=== PATIENT | male | born 1945 | race Caucasian/White ===

== ENCOUNTER 2021-08-25 14:49 | Inpatient (IN) | payer OTHER ==
[~2021-08-25] VITALS: Ht 170.2 cm; Wt 75.2 kg
[2021-08-25] MEDS ORDERED: fentaNYL 100 MCG/2 ML INJECTION (J3010) IV ONE (15:50)
[2021-08-25 16:31] LABS: BASO % 0.4 % (0.0-1.0); EOS # 0.4 10^3/uL (0.0-0.5); EOS % 5.4 % (0.0-3.0); HEMATOCRIT 23.2 % (42.0-52.0); HEMOGLOBIN 7.9 g/dl (13.5-17.5); LYMPH # 1.8 10^3/uL (1.5-5.0); LYMPH % 26.6 % (24.0-44.0); MEAN CORPUSCULAR HEMOGLOBIN 35.7 pg (27.0-33.0); MEAN CORPUSCULAR HGB CONC 34.1 g/dl (32.0-36.5); MONO # 0.8 10^3/uL (0.0-0.8); MONO % 11.8 % (2.0-8.0); NEUTROPHILS # 3.8 10^3/uL (1.5-8.5); NEUTROPHILS % 55.4 % (36.0-66.0); PLATELET COUNT, AUTOMATED 162 10^3/uL (150-450); RED BLOOD COUNT 2.21 10^6/uL (4.30-6.10); WHITE BLOOD COUNT 6.9 10^3/uL (4.0-10.0)
[2021-08-25] MEDS ORDERED: PEG-SOL4 PO (16:33)
[2021-08-25] MEDS ORDERED: DIVA500T9 PO (16:33)
[2021-08-25] MEDS ORDERED: ROSU10TA6 PO (16:33)
[2021-08-25] MEDS ORDERED: METO1TAB32 PO (16:33)
[2021-08-25] MEDS ORDERED: ASPI81CH33 PO (16:33)
[2021-08-25] MEDS ORDERED: HYDR-3911 PO (16:33)
[2021-08-25] MEDS ORDERED: LEVE750XR PO (16:33)
[2021-08-25] MEDS ORDERED: NOXI1TAB PO (16:33)
[2021-08-25] MEDS ORDERED: FOSI10TA4 PO (16:33)
[2021-08-25] MEDS ORDERED: ISOS20TAB PO (16:33)
[2021-08-25] MEDS ORDERED: SEVE800T3 PO (16:33)
[2021-08-25] MEDS ORDERED: LOPE1CAP5 PO (16:33)
[2021-08-25] MEDS ORDERED: NITR0.4S14 SL (16:33)
[2021-08-25] MEDS ORDERED: ICY1PAD EX (16:33)
[2021-08-25] MEDS ORDERED: ALLO100T PO (16:33)
[2021-08-25] MEDS ORDERED: TORS20TA2 PO (16:33)
[2021-08-25] MEDS ORDERED: CLOP75TA2 PO (16:33)
[2021-08-25] MEDS ORDERED: TERA10CA3 PO (16:33)
[2021-08-25] MEDS ORDERED: LEVO75TA4 PO (16:33)
[2021-08-25] MEDS ORDERED: CLAR10CA3 PO (16:33)
[2021-08-25] MEDS ORDERED: CALC260T PO (16:33)
--- NOTE | 2021-08-25 16:37 | REP ---
INDICATION: pain. COMPARISON: None. TECHNIQUE: Three AP and lateral views. FINDINGS: There is no compression fracture or malalignment. There is normal lumbar lordosis. There is diffuse bridging osteophytosis anteriorly. There is mild disc space narrowing and subchondral sclerosis at all levels with extensive disc calcifications at all levels. There is sclerosis and spurring at the posterior facet joints. The posterior elements are intact. IMPRESSION: Diffuse degenerative changes without fracture or dislocation. <Electronically signed by Andrew Meeks > 08/25/21 [id number]
--- NOTE | 2021-08-25 16:39 | REP ---
INDICATION: pain COMPARISON: None. TECHNIQUE: Four views bilateral knees. FINDINGS: There is no evidence of acute fracture, dislocation, or intrinsic bone disease.There is superior patellar spurring on the right. Diffuse vascular calcifications are seen in the posterior soft tissues bilaterally. No large joint effusion is seen bilaterally. IMPRESSION: No fracture or dislocation. <Electronically signed by Andrew Meeks > 08/25/21 [id number]
--- NOTE | 2021-08-25 16:42 | REP ---
INDICATION: pain. COMPARISON: None. TECHNIQUE: AP pelvis, AP and frogleg views bilateral hips. FINDINGS: There is no evidence of acute fracture or dislocation. Moderate degenerative changes are seen at each hip joint with joint space narrowing, subchondral sclerosis and spurring. Phleboliths and vascular calcifications are seen in the pelvis, as well as what appears to be a peritoneal dialysis catheter. IMPRESSION: Degenerative changes. No fracture or dislocation. <Electronically signed by Andrew Meeks > 08/25/21 [id number]
[2021-08-25 16:43] LABS: INR 1.04
[2021-08-25 17:04] LABS: ERYTHROCYTE SEDIMENTATION RATE 56 mm/hr (0-20)
--- NOTE | 2021-08-25 17:09 | ECGEPIP ---
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
[2021-08-25] MEDS ORDERED: traMADol 50 MG TAB PO ONE (17:50)
[2021-08-25 17:54] LABS: CHLORIDE LEVEL 95 MEQ/L (98-107); POTASSIUM SERUM 4.2 MEQ/L (3.5-5.1); SODIUM LEVEL 133 MEQ/L (136-145)
[2021-08-25 18:25] LABS: ALBUMIN 2.9 GM/DL (3.2-5.2); ALT/SGPT 16 U/L (12-78); BILIRUBIN,DIRECT 0.1 MG/DL (0.0-0.2); BILIRUBIN,TOTAL 0.3 MG/DL (0.2-1.0); BLOOD UREA NITROGEN 136 MG/DL (7-18); CALCIUM LEVEL 9.2 MG/DL (8.8-10.2); CARBON DIOXIDE LEVEL 28 MEQ/L (21-32); CK-MB VALUE MASS 3.5 NG/ML (<3.6); CPK CREATINE PHOSPHOKINASE 148 U/L (39-308); FREE T4 1.04 NG/DL (0.76-1.46); GLOMERULAR FILTRATION RATE 4.2 (>42); GLUCOSE, FASTING 84 MG/DL (70-100); LIPASE 416 U/L (73-393); MB/CK RELATIVE INDEX 2.36 (< OR =4); NT-PRO BNP 23504 PG/ML (<450); TROPONIN I < 0.02 NG/ML (< 0.10)
[2021-08-25] MEDS ORDERED: BACLOFEN 10 MG TAB PO ONE (18:30)
[2021-08-25 19:03] LABS: MAGNESIUM LEVEL 2.7 MG/DL (1.8-2.4)
--- NOTE | 2021-08-25 19:36 | REP ---
INDICATION: sob. COMPARISON: None. TECHNIQUE: Upright PA and lateral images of the chest were obtained. FINDINGS: The lungs are clear. There is calcific vascular disease of the thoracic aorta. The heart borders and pulmonary vascular pattern are unremarkable. There are cholecystectomy clips in the right upper quadrant. The upper abdominal bowel gas pattern is unremarkable. There are no bony abnormalities of the chest. IMPRESSION: No evidence of acute cardiopulmonary pathology. <Electronically signed by Mayur Martin > 08/25/211931
[2021-08-25] MEDS ORDERED: ISOVUE-370 76% 100ML VIAL As Ordered ONE (20:17)
[2021-08-25] MEDS: FOSINOPRIL 10MG TABLET PO SCH (21:00)
--- NOTE | 2021-08-25 21:05 | REPVR ---
PROCEDURE INFORMATION: Exam: CTA Abdomen and Pelvis With Contrast Exam date and time: 08/25/2021 8:26 PM Age: 75 years old Clinical indication: Abdominal pain; Acute; Additional info: Abd/back pain ? aaa TECHNIQUE: Imaging protocol: Computed tomographic angiography of the abdomen and pelvis with contrast material. 3D rendering (Not supervised by radiologist): MIP and/or 3D reconstructed images were created by the technologist. Radiation optimization: All CT scans at this facility use at least one of these dose optimization techniques: automated exposure control; mA and/or kV adjustment per patient size (includes targeted exams where dose is matched to clinical indication); or iterative reconstruction. Contrast material: ISO 370; Contrast volume: 100 ml; Contrast route: INTRAVENOUS (IV); COMPARISON: CR Chest, 2 view PA, Lat 08/25/2021 6:40 PM FINDINGS: Tubes, catheters and devices: Peritoneal catheter tip coiled in the pelvis. Lungs: Calcified granuloma right lower lobe. Aorta: Moderate atherosclerotic changes in the abdominal aorta. No aneurysm or dissection. Celiac trunk and mesenteric arteries: Mild atherosclerotic stenosis at the origin of the celiac artery. Moderate atherosclerotic stenosis at the origin of the SMA. Renal arteries: Moderate atherosclerotic narrowing at the origin of both renal arteries. Right iliac arteries: Moderate atherosclerotic changes in the right iliac arteries with a high-grade stenosis demonstrated at the origin of the right internal iliac artery. Right femoral/popliteal arteries: Moderate atherosclerotic changes with mild aneurysmal dilatation right common femoral artery to 1.6 cm. Left iliac arteries: Moderate atherosclerotic changes in the left iliac arteries with a moderate stenosis at the origin of the left internal iliac artery. Left femoral/popliteal arteries: High-grade stenosis in the left common femoral artery. Liver: No mass. Gallbladder and bile ducts: There has been a cholecystectomy. Pancreas: Unremarkable. No mass. No ductal dilation. Spleen: The spleen demonstrates punctate calcifications, consistent with remote granulomatous organism exposure. Adrenal glands: Unremarkable. No mass. Kidneys and ureters: Unremarkable. No solid mass. No hydronephrosis. Stomach and bowel: Moderate diverticulosis is present in the distal colon. No diverticulitis. Appendix: No evidence of appendicitis. Intraperitoneal space: Unremarkable. No free air. No significant fluid collection. Lymph nodes: Unremarkable. No enlarged lymph nodes. Urinary bladder: Unremarkable. No mass. Reproductive: The prostate gland demonstrates mild hyperplasia. Bones/joints: The spine demonstrates moderate degenerative changes. Moderate central spinal stenosis L1-L2, L3-L4 and L4-L5. Soft tissues: Unremarkable. IMPRESSION: 1. There has been a cholecystectomy. 2. Moderate diverticulosis is present in the distal colon. No diverticulitis. 3. Mild prostatic hyperplasia. 4. Moderate atherosclerotic changes in the abdominal aorta without evidence of aneurysm or dissection. Moderate atherosclerotic narrowing at the origin of the celiac, SMA and renal arteries. 5. High-grade stenosis right internal iliac artery and moderate stenosis throughout the remaining iliac arteries bilaterally. 6. High-grade narrowing at the left common femoral artery. Electronically signed by: Chris Hernandez On 08/25/2021 21:04:48 PM
--- NOTE | 2021-08-25 22:08 | HPEPDOC ---
[facility] Medical History & Physical Date of Admission Aug 25, 2021 Date of Service: Aug 25, 2021 Attending Physician: DAY ARCINIEGA MD History and Physical CHIEF COMPLAINT: [75 y/o male c/o worsening back pain x2 months] HISTORY OF PRESENT ILLNESS: [This is a 75 y/o male with a pmh of cad s/p stenting, hld, htn, esrd on peritoneal dialysis, bph, diet controlled dm, hypothyroidism, peripheral vascular disease who presents to our ED on 08/25 with a cc of low back pain that radiates into the thighs that has been steadily worsening over the past two months and is now constant in nature. Patient states that he feels as though the pain is more severe in the evenings when he lays down. Patient states that the pain is to the point where he does not feel like eating much and no longer feels like fishing - something he used to do daily. Patient tells me that he will occasionally develop some numbness of the b/l feet, however blames this on diabetic neuropathy and states that this is chronic. Patient denies any recent injury to the back. Patient admits to some mild abd discomfort, but blames this on his recent poor appetite. Patient, at the time of my exam, also denying recent fevers, chills, chest pain, sob, n/v/d/c, pedal edema, syncope.] PAST MEDICAL HISTORY: 1. [See HPI PAST SURGICAL HISTORY: 1. [Cardiac stenting]. 2. [Cholecystectomy]. 3. [Peritoneal dialysis catheter]. SOCIAL HISTORY: Tobacco use:[Denies] ETOH: [Denies] Illicit drug use: [Denies] Other relevant social factors: [Recently moved to [place] from [facility]] FAMILY HISTORY: Reviewed - none pertinent ALLERGIES: Please see below. REVIEW OF SYSTEMS: CONSTITUTIONAL: [Denies fevers, chills]. HEENT: [Denies uri sx]. CARDIOVASCULAR: [Denies chest pain, palpitations]. RESPIRATORY: [Denies sob, cough]. GASTROINTESTINAL: [Admits to abd discomfort. Denies n/v/d/c]. GENITOURINARY: [Denies dysuria]. SKIN: [Denies rash]. MUSCULOSKELETAL: [See HPI]. NEUROLOGICAL: [Denies syncope]. ENDOCRINE: [Hx of DM]. HEMATOLOGIC/LYMPHATIC: [Denies hx of vte]. HOME MEDICATIONS: Please see below. PHYSICAL EXAMINATION: VITAL SIGNS: Please see below. GENERAL APPEARANCE: [This is a 75 y/o male who is alert and oriented to questioning. He does not appear to be in any acute distress]. HEENT: [No mass or lesion. EOMI. No scleral icterus. Nares patent. Oral mucosa moist]. CARDIOVASCULAR: [Regular rate, rhythm. No murmurs, rubs, gallops]. LUNGS: [Good air flow b/l. No wheezing, rales, rhonchi]. ABDOMEN: [Peritoneal dialysis catheter in place with clean, dry bandage overlying. The area is mildly tender to palpation, however no fluctuance or erythema is appreciated. Soft abdomen]. MUSCULOSKELETAL: [No joint deformity noted]. EXTREMITIES: [Darkening of lower extremities consistent with chronic venous insufficiency. Peripheral pulses are unable to be appreciated by myself however capillary refill is intact. Mild pedal edema]. NEUROLOGICAL: [Speech clear. A+Ox3. No focal deficits]. PSYCHIATRIC: [Mood and affect appropriate]. LABORATORY DATA: See below. IMAGING: [Hip XR: FINDINGS: There is no evidence of acute fracture or dislocation. Moderate degenerative changes are seen at each hip joint with joint space narrowing, subchondral sclerosis and spurring. Phleboliths and vascular calcifications are seen in the pelvis, as well as what appears to be a peritoneal dialysis catheter. IMPRESSION: Degenerative changes. No fracture or dislocation. Knee XR: FINDINGS: There is no evidence of acute fracture, dislocation, or intrinsic bone disease.There is superior patellar spurring on the right. Diffuse vascular calcifications are seen in the posterior soft tissues bilaterally. No large joint effusion is seen bilaterally. IMPRESSION: No fracture or dislocation. Lumbar spine XR: FINDINGS: There is no compression fracture or malalignment. There is normal lumbar l ordosis. There is diffuse bridging osteophytosis anteriorly. There is mild disc space narrowing and subchondral sclerosis at all levels with extensive disc calcifications at all levels. There is sclerosis and spurring at the posterior facet joints. The posterior elements are intact. IMPRESSION: Diffuse degenerative changes without fracture or dislocation. CXR: FINDINGS: The lungs are clear. There is calcific vascular disease of the thoracic aorta. The heart borders and pulmonary vascular pattern are unremarkable. There are cholecystectomy clips in the right upper quadrant. The upper abdominal bowel gas pattern is unremarkable. There are no bony abnormalities of the chest. IMPRESSION: No evidence of acute cardiopulmonary pathology. CTA Abd/pelvis: FINDINGS: Tubes, catheters and devices: Peritoneal catheter tip coiled in the pelvis. Lungs: Calcified granuloma right lower lobe. Aorta: Moderate atherosclerotic changes in the abdominal aorta. No aneurysm or dissection. Celiac trunk and mesenteric arteries: Mild atherosclerotic stenosis at the origin of the celiac artery. Moderate atherosclerotic stenosis at the origin of the SMA. Renal arteries: Moderate atherosclerotic narrowing at the origin of both renal arteries. Right iliac arteries: Moderate atherosclerotic changes in the right iliac arteries with a high-grade stenosis demonstrated at the origin of the right internal iliac artery. Right femoral/popliteal arteries: Moderate atherosclerotic changes with mild aneurysmal dilatation right common femoral artery to 1.6 cm. Left iliac arteries: Moderate atherosclerotic changes in the left iliac arteries with a moderate stenosis at the origin of the left internal iliac artery. Left femoral/popliteal arteries: High-grade stenosis in the left common femoral artery. Liver: No mass. Gallbladder and bile ducts: There has been a cholecystectomy. Pancreas: Unremarkable. No mass. No ductal dilation. Spleen: The spleen demonstrates punctate calcifications, consistent with remote granulomatous organism exposure. Adrenal glands: Unremarkable. No mass. Kidneys and ureters: Unremarkable. No solid mass. No hydronephrosis. Stomach and bowel: Moderate diverticulosis is present in the distal colon. No diverticulitis. Appendix: No evidence of appendicitis. Intraperitoneal space: Unremarkable. No free air. No significant fluid collection. Lymph nodes: Unremarkable. No enlarged lymph nodes. Urinary bladder: Unremarkable. No mass. Reproductive: The prostate gland demonstrates mild hyperplasia. Bones/joints: The spine demonstrates moderate degenerative changes. Moderate central spinal stenosis L1-L2, L3-L4 and L4-L5. Soft tissues: Unremarkable. IMPRESSION: 1. There has been a cholecystectomy. 2. Moderate diverticulosis is present in the distal colon. No diverticulitis. 3. Mild prostatic hyperplasia. 4. Moderate atherosclerotic changes in the abdominal aorta without evidence of aneurysm or dissection. Moderate atherosclerotic narrowing at the origin of the celiac, SMA and renal arteries. 5. High-grade stenosis right internal iliac artery and moderate stenosis throughout the remaining iliac arteries bilaterally. 6. High-grade narrowing at the left common femoral artery. ] MICROBIOLOGY: Please see below. ASSESSMENT: [This is a 75 y/o male with a pmh of cad s/p stenting, hld, htn, esrd on peritoneal dialysis, bph, diet controlled dm, hypothyroidism, peripheral vascular disease who presents to our ED on 08/25 with a cc of low back pain that radiates into the thighs that has been steadily worsening over the past two months and is now constant in nature.]. . PLAN: 1. [Back/leg pain - Most likely secondary to combination of osteoarthritis and claudication from severe peripheral vascular disease - Pain control will be difficult in this patient d/t allergy to oxycodone, morphine and comorbid ESRD - Recommend patient f/u with vascular surgery promptly upon dc - Tylenol, tramadol for pain control - monitor sx 2. Symptomatic anemia - Patient c/o fatigue, weakness - current hb is 7.9, goal is >8 d/t comorbid esrd, cad - will transfuse 1 unit prbc - risks/benefits of transfusion discussed with patient who verbalized understanding - consent form was signed - iron studies, b12, folate ordered - stool occult ordered - ua for microhematuria ordered 3. ESRD - continue peritoneal dialysis per nephrology - Dr. Will Joshua, nephrology, has been consulted for assistance in this case. Assistance and recommendations greatly appreciated - continue sevelamer 4. HTN - continue torsemide, metoprolol, hydralazine, fosinopril 5. CAD - continue isosorbide, nitroglycerin, asa, plavix 6. BPH - continue terazosin 7. Epilepsy - continue keppra, depakote 8. Hypothyroidism - continue synthroid 9. HLD - continue rosuvastatin DVT prophylaxis - heparin ordered]. Vital Signs Vital Signs Date Time Temp Pulse Resp B/P (MAP) Pulse Ox O2 Delivery O2 Flow Rate FiO2 08/25/21 21:31 98.0 65 170/72 (104) 98 Room Air 08/25/21 18:14 20 Laboratory Data Labs 24H Laboratory Tests 2 08/25/21 15:59: Immature Granulocyte % (Auto) 0.4, Neutrophils (%) (Auto) 55.4, Lymphocytes (%) (Auto) 26.6, Monocytes (%) (Auto) 11.8H, Eosinophils (%) (Auto) 5.4H, Basophils (%) (Auto) 0.4, Neutrophils # (Auto) 3.8, Lymphocytes # (Auto) 1.8, Monocytes # (Auto) 0.8, Eosinophils # (Auto) 0.4, Basophils # (Auto) 0.0, Nucleated Red Blood Cells % (auto) 0.0, Erythrocyte Sedimentation Rate 56H, Prothrombin Time 14.0, Prothromb Time International Ratio 1.04, Activated Partial Thromboplast Time 31.0, Anion Gap 10, Glomerular Filtration Rate 4.2L, Calcium Level 9.2, Magnesium Level 2.7H, Total Bilirubin 0.3, Direct Bilirubin 0.1, Aspartate Amino Transf (AST/SGOT) 19, Alanine Aminotransferase (ALT/SGPT) 16, Alkaline Phosphatase 111, Total Creatine Kinase 148, Creatine Kinase MB 3.5, Creatine Kinase MB Relative Index 2.36, Troponin I < 0.02, C-Reactive Protein, Quantitative 0.30, TW-Qaf-A-Type Natriuretic Peptide 44990T, Total Protein 6.0L, Albumin 2.9L, Albumin/Globulin Ratio 0.9, Lipase 416H, Thyroid Stimulating Hormone (TSH) 4.470H, Free Thyroxine 1.04 CBC/BMP Laboratory Tests 08/25/21 15:59 Home Medications Scheduled Allopurinol (Allopurinol) 100 Mg Tablet, 100 MG PO DAILY Aspirin (Aspirin EC) 81 Mg Tablet.dr, 81 MG PO DAILY Calcium Carbonate (Calcium Carbonate) 500 Mg Tablet, 500 MG PO BID Cholecalciferol (Vitamin D3) (Vitamin D3) 1,000 Unit Tablet, 1,000 UNITS PO DAILY Clopidogrel Bisulfate (Clopidogrel) 75 Mg Tablet, 75 MG PO DAILY Divalproex Sodium (Divalproex Sodium ER) 500 Mg Tab.er.24h, 500 MG PO BID Fosinopril Sodium (Fosinopril Sodium) 10 Mg Tablet, 5 MG PO QHS Hydralazine HCl (Hydralazine HCl) 50 Mg Tablet, 50 MG PO TID Isosorbide Dinitrate (Isosorbide Dinitrate) 20 Mg Tablet, 20 MG PO TID Levetiracetam (Levetiracetam ER) 750 Mg Tab.er.24h, 750 MG PO DAILY Levothyroxine Sodium (Levothyroxine Sodium) 75 Mcg Tablet, 75 MCG PO DAILY Loratadine (Loratadine) 10 Mg Tablet, 10 MG PO DAILY Metoprolol Succinate (Metoprolol Succinate) 25 Mg Tab.er.24h, 25 MG PO DAILY Stanton-3 Fatty Acids/Fish Oil (Fish Oil 1,000 mg Capsule) 1 Each Capsule, 1,000 MG PO DAILY Rosuvastatin Calcium (Rosuvastatin Calcium) 10 Mg Tablet, 5 MG PO QHS Sevelamer Carbonate (Sevelamer Carbonate) 800 Mg Tablet, 1,600 MG PO WM Terazosin Hcl (Terazosin HCl) 10 Mg Capsule, 10 MG PO DAILY Torsemide (Torsemide) 20 Mg Tablet, 20 MG PO BID Vit A/Vit C/Vit E/Zinc/Copper (Preservision Areds Tablet) 1 Each Tablet, 1 TAB PO BID Scheduled PRN Epinephrine (Epipen 2-Juniad) 0.3 Mg/0.3 Ml Auto.injct, 0.3 MG IM ASDIRECTED PRN for ANAPHYLAXIS Nitroglycerin (Nitrostat) 0.4 Mg Tab.subl, 0.4 MG SL NITRO PRN for CHEST PAIN Propylene Glycol/Peg 400/Pf (Systane 0.3-0.4% Eye Drop) 1 Each Droperette, 1 DROP OU QID PRN for DRY EYES Allergies Coded Allergies: oxycodone (Verified Allergy, Unknown, 08/25/21) A-FIB/CHADSVASC A-FIB History Current/History of A-Fib/PAF?: No Current PO Anticoag Therapy: No DELIA HOUGH Aug 25, 2021 22:07
--- OUTSIDE RECORDS SUMMARY | 2021-08-25 22:11 | CCD ---
Author Author [facility] Organization [facility] Address Unknown Phone Unavailable Support Name Relationship Address Phone GUERLINE MERA Next Of Kin [id number] [place], [place] [id number] Re-disclosure Warning The records that you are about to access may contain information from federally-assisted alcohol or drug abuse programs. If such information is present, then the following federally mandated warning applies: This information has been disclosed to you from records protected by federal confidentiality rules (42 CFR part 2). The federal rules prohibit you from making any further disclosure of this information unless further disclosure is expressly permitted by the written consent of the person to whom it pertains or as otherwise permitted by 42 CFR part 2. A general authorization for the release of medical or other information is NOT sufficient for this purpose. The Federal rules restrict any use of the information to criminally investigate or prosecute any alcohol or drug abuse patient.The records that you are about to access may contain highly sensitive health information, the redisclosure of which is protected by Article 27-F of the [facility] Public Health law. If you continue you may have access to information: Regarding HIV / AIDS; Provided by facilities licensed or operated by the [facility] Office of Mental Health; or Provided by the [facility] Office for People With Developmental Disabilities. If such information is present, then the following [facility] mandated warning applies: This information has been disclosed to you from confidential records which are protected by state law. State law prohibits you from making any further disclosure of this information without the specific written consent of the person to whom it pertains, or as otherwise permitted by law. Any unauthorized further disclosure in violation of state law may result in a fine or fpc sentence or both. A general authorization for the release of medical or other information is NOT sufficient authorization for further disc losure. Medications No Information Insurance Providers Payer name Policy type / Coverage type Policy ID Covered republican ID Covered republican's relationship to alvarez Policy Alvarez Plan Information [facility] [id number] Problems, Conditions, and Diagnoses No Information Surgeries/Procedures No Information Results ID Date Data Source [place] 07/24/2021 12:00:00 AM EDT [facility] Name Value Range Interpretation Code Description Data Danette rce(s) Supporting Document(s) SARS-CoV2 Rapid [facility]igen [facility] This lab was ordered by [facility] and reported by [facility] Procedure Social History No Information
[2021-08-25 22:36] LABS: FERRITIN 965 NG/ML (26-388); IRON (FE) 83 UG/DL (65-175); PERCENT SATURATION 30.5 % (19.7-50.0); TOTAL IRON BINDING CAPACITY 272 UG/DL (250-450)
[2021-08-25 22:44] LABS: VITAMIN B12 LEVEL 720 PG/ML (247-911)
[2021-08-25 22:45] LABS: FOLATE 14.3 NG/ML (>5.4)
[2021-08-25 22:49] LABS: RSV AMPLIFICATION NEGATIVE (NEGATIVE)
[2021-08-25] MEDS ORDERED: ASPI-161 PO (23:26)
[2021-08-25] MEDS ORDERED: FISH1000 PO (23:26)
[2021-08-25] MEDS ORDERED: OCUVTAB4 PO (23:26)
[2021-08-25] MEDS ORDERED: SYST1SOL4 OU (23:26)
[2021-08-25] MEDS ORDERED: D31000TA2 PO (23:26)
[2021-08-25] MEDS ORDERED: LORA-674 PO (23:26)
[2021-08-25] MEDS ORDERED: CALC500T61 PO (23:26)
[2021-08-25] MEDS ORDERED: NITR4TASL SL (23:26)
[2021-08-25] MEDS ORDERED: EPIP0.3I2 IM (23:26)
[2021-08-25] MEDS ORDERED: HOME MED LIST COMPLETE! XX SCH (23:30)
--- NOTE | 2021-08-25 23:41 | REPVR ---
PROCEDURE INFORMATION: Exam: US Duplex Lower Extremity Veins, Bilateral Exam date and time: 08/25/2021 11:06 PM Age: 75 years old Clinical indication: Pain; Leg, lower; Bilateral; Additional info: Calf pain, edema TECHNIQUE: Imaging protocol: Real-time duplex ultrasound of the extremities with 2-D hameed scale, color Doppler flow and spectral waveform analysis with image documentation. Complete exam focused on the bilateral lower extremity veins. COMPARISON: CT ANGIO ABDOMEN 08/25/2021 8:20 PM FINDINGS: Right deep veins: Common femoral, femoral, proximal profunda femoral and popliteal veins are patent without thrombus. Normal Doppler waveforms. Normal compressibility and/or augmentation response. Right superficial veins: Saphenofemoral junction is patent without thrombus. Left deep veins: Common femoral, femoral, proximal profunda femoral and popliteal veins are patent without thrombus. Normal Doppler waveforms. Normal compressibility and/or augmentation response. Left superficial veins: Saphenofemoral junction is patent without thrombus. Soft tissues: No abnormal focal fluid collection. IMPRESSION: No evidence of deep vein thrombosis. Electronically signed by: Edmar Cueva On 08/25/2021 23:41:20 PM
[2021-08-26] VITALS (10 sets, daily range): BP systolic 124–172; BP diastolic 54–96
[2021-08-26] MEDS ORDERED: NITROGLYCERIN 0.4 MG SUBL TABLET SL PRN (00:30)
[2021-08-26] MEDS: ACETAMINOPHEN TAB 650MG DOSE (2X325MG) PO PRN ×2 (00:55→13:01)
[2021-08-26] MEDS ORDERED: PILL CUTTER 1 EACH XX PRN (01:25)
[2021-08-26] MEDS: DIVALPROEX 500MG *ER* TAB PO SCH ×3 (01:56→20:53)
[2021-08-26] MEDS: ISOSORBIDE DIN. (ISORDIL) 20 MG TAB PO SCH ×4 (01:57→20:51)
[2021-08-26] MEDS: traMADol 50 MG TAB PO PRN ×2 (01:57→14:44)
[2021-08-26] MEDS: ROSUVASTATIN 10 MG TAB (CRESTOR) PO SCH ×2 (01:57→20:52)
[2021-08-26] MEDS: **hydrALAZINE** 50 MG TAB PO SCH ×4 (01:58→20:53)
[2021-08-26] MEDS: OYSTER SHELL CALCIUM 500 MG TAB PO SCH ×3 (01:58→20:52)
[2021-08-26 06:11] LABS: HEMATOCRIT 26.2 % (42.0-52.0); HEMOGLOBIN 9.1 g/dl (13.5-17.5); MEAN CORPUSCULAR HEMOGLOBIN 34.7 pg (27.0-33.0); MEAN CORPUSCULAR HGB CONC 34.7 g/dl (32.0-36.5); PLATELET COUNT, AUTOMATED 149 10^3/uL (150-450); RED BLOOD COUNT 2.62 10^6/uL (4.30-6.10); WHITE BLOOD COUNT 6.7 10^3/uL (4.0-10.0)
[2021-08-26] MEDS: LEVOTHYROXINE 75MCG TABLET (0.075MG) PO SCH (06:12)
[2021-08-26 06:35] LABS: CALCIUM LEVEL 8.7 MG/DL (8.8-10.2); CREATININE FOR GFR 12.1 MG/DL (0.70-1.30); GLOMERULAR FILTRATION RATE 4.4 (>42); MAGNESIUM LEVEL 2.4 MG/DL (1.8-2.4); POTASSIUM SERUM 3.5 MEQ/L (3.5-5.1)
[2021-08-26 08:01] LABS: APPEARANCE, BODY FLUID CLEAR (CLEAR); PERITONEAL DIALYSATE FL COLOR COLORLESS (COLORLESS); SOURCE, BODY FLUID PERITONEAL DIALYSATE
[2021-08-26] MEDS: HEPARIN SOD (PORCINE) 5000UNITS/ML 1ML VIAL/SYRINGE SC SCH ×2 (09:33→20:50)
[2021-08-26] MEDS: TERAZOSIN 5MG CAPSULE PO SCH (09:35)
[2021-08-26] MEDS: (RENVELA) SEVELAMER **CARBONate** 800 MG TAB PO SCH ×3 (09:35→17:53)
[2021-08-26] MEDS: VITAMIN D 1,000 INTERNATIONAL UNITS TABLET PO SCH (09:35)
[2021-08-26] MEDS: levETIRAcetam **XR** 750MG TABLET (KEPPRA XR) PO SCH (09:35)
[2021-08-26] MEDS: allopurinoL 100 MG TAB PO SCH (09:36)
[2021-08-26] MEDS: LORATADINE 10 MG TAB PO SCH (09:36)
[2021-08-26] MEDS: ASPIRIN 81MG ENTERIC TABLET PO SCH (09:36)
[2021-08-26] MEDS: TORSEMIDE 20 MG TAB PO SCH ×2 (09:36→17:53)
[2021-08-26] MEDS: DOCUSATE SODIUM 100MG CAPSULE PO SCH ×2 (09:36→20:50)
[2021-08-26] MEDS: CLOPIDOGREL 75 MG TAB PO SCH (09:36)
[2021-08-26] MEDS: METOPROLOL SUCC *XL* 25MG TAB (TopROL *XL*) PO SCH (09:38)
[2021-08-26 10:27] LABS: APPEARANCE, URINE CLEAR (CLEAR); BACTERIA, URINE AUTO 1+ (NEGATIVE); BILIRUBIN, URINE AUTO NEGATIVE (NEGATIVE); BLOOD, URINE BLOOD NEGATIVE (NEGATIVE); COLOR, URINE YELLOW (YELLOW); GLUCOSE, URINE (UA) AUTO NEGATIVE (NEGATIVE); KETONE, URINE AUTO NEGATIVE (NEGATIVE); LEUKOCYTE ESTERASE, URINE AUTO NEGATIVE (NEGATIVE); MUCUS, URINE SMALL (NEGATIVE); NITRITE, URINE AUTO NEGATIVE (NEGATIVE); PROTEIN, URINE AUTO 1+ mg/dL (NEGATIVE); RBC, URINE AUTO 0 /HPF (0-3); SPECIFIC GRAVITY URINE AUTO 1.013 (1.002-1.035); SQUAMOUS EPITHELIAL CELL UR AU 0 /HPF (0-6); UROBILINOGEN, URINE AUTO 0.2 mg/dL (0.0-2.0); WBC, URINE AUTO 0 /HPF (0-3)
[2021-08-26] MEDS ORDERED: ONDANSETRON 4MG/2ML VIAL IV PRN (14:20)
[2021-08-26] MEDS: NEOSPORIN TOP OINT 15GM TOP SCH (14:40)
--- NOTE | 2021-08-26 16:54 | IPNPDOC ---
Text Note Date of Service The patient was seen on 08/26/21. NOTE Subjective: Patient is a 75-year-old male who presented to the emergency dep artment with chief complaint of low back pain that radiates into the thighs that has been steadily worsening over the past 2 months and is now constant in nature. Patient states that this pain has mildly improved. Patient did have an episode of lightheadedness when he went to have a bowel movement this morning but now that he is laying back down, this is feeling better. Patient was also found to have an anemia and was transfused unit of blood. Patient is feeling better than he did yesterday but is still complaining of back pain. Review of systems: General: Patient denies fevers HEENT: Patient denies headaches Cardiovascular: Patient denies chest pain Respiratory: Patient denies shortness of breath, cough GI: Patient denies abdominal pain, nausea, vomiting, diarrhea : Patient denies increased frequency or pain with urination Extremities: Patient reports pain in his thighs but denies swelling in his legs Neurological: Patient denies numbness or tingling in legs Physical exam: Vitals: See below General: Alert and oriented male patient who was laying in bed when I walked in the room. Patient did not appear to be in any acute distress. HEENT: Normocephalic, atraumatic, moist mucous membranes. Neck: No lymphadenopathy or thyromegaly Cardiac: Regular rate and rhythm, no murmurs, normal S1, normal S2 Pulm: Clear to auscultation bilaterally. No wheezes, rhonchi, rales Abd: Nondistended, nontender to palpation, normal bowel sounds, peritoneal dialysis catheter clean dry without any erythema around the site. Ext: No edema bilateral lower extremities, 1/4 dorsalis pedis pulses bilaterally Labs: See below Imaging: No new imaging has been performed Assessment/plan: 75-year-old male with past medical history of coronary artery disease status post stenting, hyperlipidemia, hypertension, ESRD on peritoneal dialysis, BPH, diet-controlled diabetes mellitus, hypothyroidism, peripheral vascular disease presented emergency department on 102 with chief complaint of low back pain that radiates into the thighs and steadily worsening over the past 2 months and is now constant in nature. 1. Back pain. This most likely secondary to a combination of osteoarthritis and claudication from severe peripheral vascular disease. Pain control be difficult due to allergy to oxycodone, morphine, and comorbid ESRD. We will continue with Tylenol and tramadol for pain control and monitor the patient's symptoms. Patient will most likely need a follow-up with vascular surgery upon discharge. 2. Symptomatic anemia. Patient was transfused a unit of packed red blood cells. Consent form was signed. We will continue to monitor. Stool occult blood was negative. 3. ESRD on peritoneal dialysis. I appreciate Dr. Joshua's help in treating the patient. 4. Hypertension. Continue torsemide, metoprolol, hydralazine, fosinopril. 5. Coronary artery disease. Continue isosorbide, nitroglycerin, aspirin and Plavix. 6. BPH. Continue Terazosin. 7. Epilepsy. Continue Keppra and Depakote. 8. Hypothyroidism. Continue Synthroid. 9. Hyperlipidemia. Continue rosuvastatin. 10. Peripheral vascular disease. Patient is on aspirin, Plavix, and statin therapy at this time. Patient may require revascularization outpatient. DVT Prophylaxis: Heparin Disposition: Pending clinical improvement Rosalio GARCIA, I+O VSRosalio I+O Laboratory Tests 08/26/21 05:48 Vital Signs Date Time Temp Pulse Resp B/P (MAP) Pulse Ox O2 Delivery O2 Flow Rate FiO2 08/26/21 15:14 18 Room Air 08/26/21 14:00 97.3 65 139/65 (89) 97 I&O- Last 24 Hours up to 6 AM 08/26/21 06:00 Intake Total 4600 ml Output Total 2825 ml Balance 1775 ml OLIVIER ALFRED DO Aug 26, 2021 16:54
--- NOTE | 2021-08-26 20:05 | CR ---
NEPHROLOGY CONSULTATION DATE: 08/26/2021 REQUESTING PHYSICIAN: Juliná Fong M.D. CONSULTING PHYSICIAN: Sky Joshua M.D. Note: Consult was called last evening and the case was discussed with the admitting physician chemist assistant. His peritoneal dialysis was ordered last evening and I have seen the patient this morning. REASON FOR CONSULTATION: To assist in the management of end-stage renal disease. HISTORY OF PRESENT ILLNESS: Mr. Dowell is a 75-year-old gentleman with a known history of coronary artery disease, status post angioplasty with stent placement, history of hyperlipidemia, hypertension, peripheral vascular disease with prior bilateral lower extremity bypass and history of end-stage renal disease. He is currently on peritoneal dialysis. The patient recently moved to this area and was seen for the first time in the dialysis clinic about 10 days ago at which time his hemoglobin was about 9. He presented to the Emergency Room last evening with back pain and lower extremity pain. I was called by the nurse practitioner from the Emergency Room and was informed that his hemoglobin is down to 7.8. His pain was in the back and upper thighs. He did not have any other complaints related to dialysis. I recommended to get a CT scan with IV contrast and it did show significant vascular disease due to which he was admitted last evening. He denies any missing of dialysis treatments. PAST MEDICAL AND SURGICAL HISTORY: The patient's past medical and surgical history is significant for: 1. Diabetes. 2. Hypertension. 3. Hyperlipidemia. 4. End-stage renal disease. 5. Peripheral vascular disease. 6. Hypothyroidism. 7. Anemia. 8. Hyperlipidemia. SURGICAL HISTORY: The patient's past surgical history is significant for: 1. Cholecystectomy. 2. Peritoneal dialysis catheter placement. 3. Bilateral lower extremity bypass. 4. Angioplasty with coronary artery stenting. FAMILY HISTORY: Noncontributory and negative for end-stage renal disease. PERSONAL AND SOCIAL HISTORY: The patient denies any alcohol, tobacco or drug use. He recently moved to the [facility] from the [facility]. MEDICATIONS: His home medications include: 1. Allopurinol 100 mg daily. 2. Aspirin 81 mg daily. 3. Calcium Carbonate 500 mg twice daily. 4. Vitamin D 1,000 units daily. 5. Plavix 75 mg daily. 6. Divalproex ER 500 mg twice daily. 7. Fosinopril 5 mg at bedtime. 8. Hydralazine 50 mg three times daily. 9. Isosorbide 20 mg three times daily. 10. Keprra 750 mg daily. 11. Levothyroxine 75 mcg daily. 12. Loratadine 10 mg daily. 13. Metoprolol 25 mg daily. 14. Crestor 10 mg daily. 15. Renvela 800 mg with meals. 16. Terazosin 10 mg daily. 17. Torsemide 20 mg twice daily. 18. Multivitamin one tablet daily. 19. He also uses nitroglycerin as needed. 20. Systane eye drops as needed. ALLERGIES: He has allergy to Oxycodone. REVIEW OF SYSTEMS: Constitutional: The patient denies any fevers or chills. He reports chronic pain in his lower back and thighs which got worse during the last week or 10 days. He denies any falls. Ears, Nose and Throat: Unremarkable. Cardiovascular System: Negative for chest pain or dyspnea. He does have a prior history of angioplasty. Respiratory System: Negative for cough or hemoptysis. GI System: Negative for vomiting or diarrhea. His peritoneal dialysis has been functioning well. He denies any abdominal pain. Genitourinary System: Negative for dysuria or hematuria. He has no history of kidney stones. Musculoskeletal System: Significant for lower back pain and thigh pain. His pain also extends to the groin area bilaterally. Endocrine System: Significant for diet controlled diabetes, hypothyroidism, and secondary hyperparathyroidism. Hematological System: Significant for anemia of chronic kidney disease. He is also on Plavix and Aspirin. Skin: Negative for rash or ulcers. Neurological System: Negative for seizures or stroke. PHYSICAL EXAMINATION: VITAL SIGNS: Temperature 97.3 degrees Fahrenheit, heart rate 68 per minute, respiratory rate 16 per minute, blood pressure 139/65 mm of mercury and oxygen saturation is 97% on room air. HEENT: His head is atraumatic. Pupils are equal, round and reactive to light and sclerae is anicteric. HEART: Sounds are regular. LUNGS: Clear to auscultation bilaterally. ABDOMEN: Soft and nontender and bowel sounds are normal. EXTREMITIES: Without any cyanosis or clubbing. Peritoneal dialysis catheter in his left lower quadrant is intact. NEUROLOGICAL: He is awake, alert and at his baseline mentation without any focal deficits. LABORATORY DATA: On admission his hemoglobin was 7.9 and hematocrit 232. WBC count 6.9. He received one unit of packed RBCs and hemoglobin is now 9.1 and hematocrit is 26.2. Sodium was 133 and potassium 4.2. BUN 136 and creatinine 12.6. Calcium level is 9.2 and magnesium is 2.7. Ferratin 965 and iron level is 83. A BNP level is 23,504. TSH 4.47. Urinalysis showed 1+ protein and no blood. There is no WBCs and no RBCs. IMAGING: The patient had a CT angiogram done of his abdomen in the Emergency Room last evening which showed moderate atherosclerotic changes in the abdomen aorta without any evidence of dissection. Moderate narrowing at the region of the celiac and superior mesenteric artery and renal arteries. He has high grade stenosis in the right internal iliac artery and moderate stenosis throughout the remaining iliac arteries bilaterally. There is high grade stenosis at the left common femoral artery. PROBLEMS: 1. End-stage renal disease - The patient has been doing well on peritoneal dialysis we will continue with five exchanges per day and use 2.5% solution. I have already ordered his dialysis prescription. His peritoneal fluid has been clear and volume status is well compensated. 2. Severe vascular disease involving iliac and femoral arteries - The patient already has bilateral lower extremity femoral, popliteal area bypass. He is likely to require vascular surgery intervention. We are waiting for a vascular surgery input. 3. Anemia his anemia did get worse, however the patient denies any blood loss. About 10 days ago his hemoglobin was about 9 in the outpatient clinic. He had been transfused one unit of packed RBCs and his iron studies are adequate. I do not feel that he has any chronic blood loss. He will be given Aranesp 100 mcg and we will monitor his hemoglobin. 4. Congestive heart failure his BNP level is quite elevated, however clinically the patient is quite compensated. I do not feel that we need to remove an excessive amount of fluid at this point. 5. Hypertension - blood pressure seems very well controlled on current antihypertensive medications and no changes are needed at this point. Thank you for involving me in the care Mr. Dowell. I will follow him along with you. JENNIFFER
[2021-08-26] MEDS: FOSINOPRIL 10MG TABLET PO SCH (20:54)
[2021-08-27] MEDS: ACETAMINOPHEN TAB 650MG DOSE (2X325MG) PO PRN ×3 (00:34→17:01)
[2021-08-27 06:00] VITALS: BP 113/58
[2021-08-27] MEDS: LEVOTHYROXINE 75MCG TABLET (0.075MG) PO SCH (06:44)
[2021-08-27 07:06] LABS: HEMATOCRIT 28.8 % (42.0-52.0); HEMOGLOBIN 10.1 g/dl (13.5-17.5); MEAN CORPUSCULAR HEMOGLOBIN 34.7 pg (27.0-33.0); MEAN CORPUSCULAR HGB CONC 35.1 g/dl (32.0-36.5); PLATELET COUNT, AUTOMATED 178 10^3/uL (150-450); RED BLOOD COUNT 2.91 10^6/uL (4.30-6.10); WHITE BLOOD COUNT 7.3 10^3/uL (4.0-10.0)
[2021-08-27 07:38] LABS: CALCIUM LEVEL 9.1 MG/DL (8.8-10.2); GLOMERULAR FILTRATION RATE 4.4 (>42); MAGNESIUM LEVEL 2.5 MG/DL (1.8-2.4); POTASSIUM SERUM 3.8 MEQ/L (3.5-5.1)
[2021-08-27 08:06] LABS: APPEARANCE, BODY FLUID CLEAR (CLEAR); PERITONEAL DIALYSATE FL COLOR COLORLESS (COLORLESS); SOURCE, BODY FLUID PERITONEAL DIALYSATE
[2021-08-27] MEDS: (RENVELA) SEVELAMER **CARBONate** 800 MG TAB PO SCH ×3 (08:30→17:00)
[2021-08-27] MEDS: VITAMIN D 1,000 INTERNATIONAL UNITS TABLET PO SCH (08:30)
[2021-08-27] MEDS: HEPARIN SOD (PORCINE) 5000UNITS/ML 1ML VIAL/SYRINGE SC SCH ×2 (08:30→20:13)
[2021-08-27] MEDS: CLOPIDOGREL 75 MG TAB PO SCH (08:30)
[2021-08-27] MEDS: NEOSPORIN TOP OINT 15GM TOP SCH (08:30)
[2021-08-27] MEDS ORDERED: TRAM50TA2 PO ×2 (08:31→10:11)
[2021-08-27] MEDS: levETIRAcetam **XR** 750MG TABLET (KEPPRA XR) PO SCH (08:31)
[2021-08-27] MEDS: TERAZOSIN 5MG CAPSULE PO SCH (08:31)
[2021-08-27] MEDS: DIVALPROEX 500MG *ER* TAB PO SCH ×2 (08:31→20:14)
[2021-08-27] MEDS: OYSTER SHELL CALCIUM 500 MG TAB PO SCH ×2 (08:31→20:14)
[2021-08-27] MEDS: LORATADINE 10 MG TAB PO SCH (08:31)
[2021-08-27] MEDS: ASPIRIN 81MG ENTERIC TABLET PO SCH (08:31)
[2021-08-27] MEDS: allopurinoL 100 MG TAB PO SCH (08:31)
[2021-08-27] MEDS: DOCUSATE SODIUM 100MG CAPSULE PO SCH ×2 (08:31→20:14)
[2021-08-27] MEDS: ISOSORBIDE DIN. (ISORDIL) 20 MG TAB PO SCH ×3 (08:32→21:00)
[2021-08-27] MEDS: TORSEMIDE 20 MG TAB PO SCH ×2 (08:32→17:00)
[2021-08-27] MEDS: traMADol 50 MG TAB PO PRN ×2 (08:32→22:29)
[2021-08-27] MEDS: **hydrALAZINE** 50 MG TAB PO SCH ×3 (08:33→21:00)
[2021-08-27] MEDS: METOPROLOL SUCC *XL* 25MG TAB (TopROL *XL*) PO SCH (08:33)
[2021-08-27] MEDS ORDERED: DARBEPOETIN 100 MCG/0.5 ML *NON-DIALYSIS* SYRINGE (J0881) SC SCH (09:00)
[2021-08-27] MEDS ORDERED: MORPHINE 2 MG/ML 1ML VIAL (J2270) IV ONE (13:25)
[2021-08-27] MEDS ORDERED: ISOVUE-370 76% 100ML VIAL As Ordered ONE (13:37)
[2021-08-27 14:00] VITALS: BP 105/48
--- NOTE | 2021-08-27 16:32 | REPVR ---
PROCEDURE INFORMATION: Exam: CTA Angiogram of the Abdominal Aorta and Bilateral Lower Extremities (Run-off) With IV Contrast Exam date and time: 08/27/2021 2:02 PM Age: 75 years old Clinical indication: Other: With runoff to lower extremities, acute cold limb TECHNIQUE: Imaging protocol: CT angiogram of the abdominal aorta, pelvis and bilateral lower extremities with IV iodinated contrast. 3D rendering (Not supervised by radiologist): MIP and/or 3D reconstructed images were created by the technologist. Radiation optimization: All CT scans at this facility use at least one of these dose optimization techniques: automated exposure control; mA and/or kV adjustment per patient size (includes targeted exams where dose is matched to clinical indication); or iterative reconstruction. Contrast material: ISOVUE 370; Contrast volume: 100 ml; Contrast route: INTRAVENOUS (IV); COMPARISON: CT ANGIO ABDOMEN 08/25/2021 8:20 PM FINDINGS: Aorta: No aortic aneurysm. No aortic dissection. Atherosclerotic calcific plaque disease is seen in the abdominal aorta and iliofemoral arteries. Celiac trunk and mesenteric arteries: No occlusion or significant stenosis. Kinking of the proximal celiac trunk is seen on image 76 of series 403. There is 50-75% diameter stenosis present in the proximal superior mesenteric artery. The inferior mesenteric artery is patent however the origin is not visible. This could signify a greater than 75% diameter stenosis of the origin of the AURORA. Renal arteries: Moderate, 50-75% diameter stenoses of the proximal bilateral renal arteries is present. Right iliac arteries: No occlusion or significant stenosis. Right femoral/popliteal arteries: There is a patent right femoropopliteal vascular graft present which constitutes flow in the right popliteal artery. Right infrapopliteal arteries: There is normal vascular flow present in the right anterior tibial and peroneal arteries with the proximal posterior tibial artery occluded and probably distally constituted via small collateral muscular arteries at the level of the mid-right tibia. There is normal three-vessel vascular supply to the right ankle and foot below the mid-right tibia. Left iliac arteries: No occlusion or significant stenosis. Left femoral/popliteal arteries: A left femoropopliteal vascular graft is present which is completely occluded shortly after its origin on images 152-158 of series 401. The left superficial femoral artery shows patchy segmental flow with heavy vascular calcifications present causing very limited flow in the artery. The popliteal artery is largely supplied by large muscular branch collateral vessels from the thigh. Left infrapopliteal arteries: There is three-vessel vascular flow in the lower leg down to the distal third of the left tibia below which the peroneal artery is occluded. The left anterior and posterior tibial arteries supply the left ankle and foot. Lung bases: Both lung bases are relatively well-aerated. Heart: Borderline cardiomegaly. Moderate coronary artery calcification is present. Liver: No mass. Gallbladder and bile ducts: Prior cholecystectomy. No ductal dilation. Pancreas: Unremarkable. No mass. No ductal dilation. Spleen: Normal. No splenomegaly. Adrenals: Normal. No mass. Kidneys and ureters: Small hypodense masses are present in the relatively atrophic renal parenchyma bilaterally. These masses have benign features with thin mon and homogeneous low attenuation density of less than 20 Hounsfield units and are likely Bosniak type I cysts. No further follow-up is recommended. Reference: Carmen COHN, Management of the Incidental Renal Mass on CT: A White Paper of the ACR Incidental Findings Committee, J Am Chase Radiol 2018. Impression. Stomach and bowel: Moderately severe distal colonic diverticulosis, with no evidence of acute diverticulitis. No obstruction. No mucosal thickening. Appendix: No evidence of appendicitis. Bladder: Unremarkable. No mass. Reproductive: Unremarkable as visualized. Intraperitoneal space: No free air. A peritoneal dialysis catheter is present with the distal tip coiled in the mid-pelvis on image 133 of series 401. A large amount of peritoneal dialysate fluid versus renal failure-related ascites is present in the peritoneal cavity. Impression. Lymph nodes: No lymphadenopathy. Bones/joints: No acute fractures. There are multiple levels of chronic degenerative vertebral body endplate osteophytosis anteriorly in the mid-lower thoracic spine together with multilevel calcification of the anterior longitudinal ligament of the spine and the intervertebral discs, which probably represents diffuse idiopathic skeletal hyperostosis (DISH). Soft tissues: Unremarkable. IMPRESSION: 1. No aortic aneurysm. No aortic dissection. Atherosclerotic calcific plaque disease is seen in the abdominal aorta and iliofemoral arteries. Kinking of the proximal celiac trunk is seen on image 76 of series 403. There is 50-75% diameter stenosis present in the proximal superior mesenteric artery. The inferior mesenteric artery (AURORA) is patent however the origin is not visible. This could signify a greater than 75% diameter stenosis of the origin of the AURORA. 2. Moderate, 50-75% diameter stenoses of the proximal bilateral renal arteries is present. 3. Right lower extremity arteries: Right iliac arteries: No occlusion or significant stenosis. Right femoral/popliteal arteries: The right superficial femoral artery is occluded secondary to heavy atherosclerotic plaque disease. There is a patent right femoropopliteal vascular bypass graft present which constitutes flow into the right popliteal artery. Right infrapopliteal arteries: There is normal vascular flow present in the right anterior tibial and peroneal arteries with the proximal posterior tibial artery occluded and then distally constituted via small collateral muscular arteries at the level of the mid-right tibia. There is normal three-vessel vascular supply to the right ankle and foot below the mid-right tibia. 4. Left lower extremity arteries: Left iliac arteries: No occlusion or significant stenosis. Left femoral/popliteal arteries: A left femoropopliteal vascular graft is present which is completely occluded shortly after its origin on images 152-158 of series 401. The left superficial femoral artery shows patchy segmental flow with heavy vascular calcifications present causing very limited flow in the artery. The popliteal artery is largely supplied by large muscular branch collateral vessels from the thigh. Left infrapopliteal arteries: There is three-vessel vascular flow in the lower leg down to the distal third of the left tibia below which the peroneal artery is occluded. The left anterior and posterior tibial arteries supply the left ankle and foot. 5. Borderline cardiomegaly. Moderate coronary artery calcification is present. 6. Prior cholecystectomy. No biliary ductal dilatation. 7. Small hypodense masses are present in the relatively atrophic renal parenchymas bilaterally. These masses have benign features with thin mon and homogeneous low attenuation density of less than 20 Hounsfield units and are likely Bosniak type I cysts. No further follow-up is recommended. Reference: Carmen BR, Management of the Incidental Renal Mass on CT: A White Paper of the ACR Incidental Findings Committee, J Am Chase Radiol 2018. 8. Moderately severe distal colonic diverticulosis, with no evidence of acute diverticulitis. No bowel obstruction. 9. No free intraperitoneal air. A peritoneal dialysis catheter is present with the distal tip coiled in the mid-pelvis on image 133 of series 401. A large amount of peritoneal dialysate fluid versus renal failure-related ascites is present in the peritoneal cavity. 10. There are multiple levels of chronic degenerative vertebral body endplate osteophytosis anteriorly in the mid-lower thoracic spine together with multilevel calcification of the anterior longitudinal ligament of the spine and the intervertebral discs, which probably represents diffuse idiopathic skeletal hyperostosis (DISH). Electronically signed by: Noe Leonardo On 08/27/2021 16:32:04 PM
--- NOTE | 2021-08-27 18:15 | IPN ---
PROGRESS NOTE DATE: 08/27/2021 Mr. Dowell is seen this morning on his bedside. He is feeling better, and currently his peritoneal dialysis exchange is in progress. His peritoneal fluid has been clear. He has pain in lower back and upper thighs. He was found to have significant stenosis in his internal iliac artery and femoral arteries. Unfortunately, vascular service is not available at this hospital. PHYSICAL EXAMINATION: Temperature 97.4 degrees Fahrenheit, heart rate 82 per minute, respiratory rate 18 per minute, blood pressure 113/48 mmHg, and oxygen saturation 96% on room air. Head is atraumatic. Neck supple and without jugular venous distention (JVD) or thyroid enlargement. Heart sounds are regular and lungs clear to auscultation. Abdomen soft and nontender, and bowel sounds are normal. Peritoneal dialysis catheter is intact. Extremities without any cyanosis or clubbing. Neurologically he is at his baseline mentation. Today's labs show WBC count 7.3, hemoglobin 10.1, and hematocrit 28.8. Sodium 133, potassium 3.8, CO2 of 26, BUN 104, and creatinine 12. Glucose 109 and calcium 9.1. PROBLEMS: 1. End-stage renal disease. Patient has been on peritoneal dialysis, which is working well, and he will continue with his chronic home prescription. He is currently receiving five exchanges here per day with 2-liter bag. 2. Peripheral vascular disease. Patient has generalized vascular disease with prior bilateral lower extremity bypass procedures. Now he is noticed to have internal iliac artery stenosis and femoral artery stenosis. He needs vascular surgery evaluation, which is not available here. He will need to be referred to [place]. 3. Anemia. His anemia was significant on admission and improved after he was transfused with 1 unit of packed red blood cells (RBC). He will receive a dose of Aranesp 100 mcg today. 4. Hypertension. Blood pressure seems very well controlled, and no changes in antihypertensive is being made. DISPOSITION: From a renal standpoint, patient can be discharged to home today, and he can be referred to vascular surgery in [place] as an outpatient.
--- NOTE | 2021-08-27 18:40 | IPNPDOC ---
Text Note Date of Service The patient was seen on 08/27/21. NOTE Subjective: Patient is a 75-year-old male who presented to the emergency dep artment chief complaint of low back pain that radiates into the thighs that intensively worse over the past 2 months and have been constant in nature. Initially, patient was feeling much better this morning and was going to be discharged however, late in the morning, patient began developing 10/10 pain in his left leg from his knee down. Patient could not get comfortable because of this pain and had to be rocking back and forth. Patient was calling out and stated that even light touch was hurting his foot. Patient stated that the pain felt like a burn in his constant since it came on suddenly. Review of systems: General: Patient denies fevers HEENT: Patient denies headaches Cardiovascular: Patient denies chest pain Respiratory: Patient denies shortness of breath, cough GI: Patient denies abdominal pain, nausea, vomiting, diarrhea Physical exam: Vitals: See below General: Alert and oriented male patient who was sitting in bed when I walked in. Patient did not appear to be in any acute distress. When I came back to examine the patient after the pain started, patient did appear uncomfortable HEENT: Normocephalic, atraumatic, moist mucous membranes. Neck: No lymphadenopathy or thyromegaly Cardiac: Regular rate and rhythm, no murmurs, normal S1, normal S2 Pulm: Clear to auscultation bilaterally. No wheezes, rhonchi, rales Abd: Nondistended, nontender to palpation, normal bowel sounds Ext: No edema bilateral lower extremities. 1/4 dorsalis pedis pulses bilaterally. After the patient experienced the pain, the left lower extremity did feel cooler than the right lower extremity with absent pulses in the left lower extremity that were unable to be found with Doppler. Labs: See below Imaging: CT angio of the abdominal arteries with runoff to the legs performed on 08/27/2021 was reported to show no aortic aneurysm, no aortic dissection, arthrosclerotic calcific plaque disease is seen in the abdominal aorta and iliofemoral arteries. Kinking of the proximal celiac trunk is seen. There is 50 to 75% diameter stenosis present in the proximal superior mesenteric artery. Inferior mesenteric artery is patent however the origin is not visible. This could signify greater than 75% diameter stenosis in the origin of the AURORA. Moderate, 50 to 75% diameter stenosis of the proximal bilateral renal arteries is present. Right lower extremity arteries no occlusion of the right iliac arteries. Right femoral/popliteal arteries show the right superficial femoral artery is occluded secondary to heavy arthrosclerotic plaque disease. There is patent right femoral-popliteal vascular bypass graft present which constitutes flow to the right popliteal artery. Normal vascular flow is present the right anterior tibial and peroneal arteries with proximal posterior tibial artery occluded then distally constituted via a small collateral muscular artery at the level of the right mid tibia. There is normal three-vessel vascular supply to the right ankle and foot below the mid right tibia. Left iliac arteries show no occlusion or significant stenosis. Left femoral-popliteal arteries show a left femoral-popliteal vascular graft is present which is completely occluded shortly after its origin. The left superficial femoral artery shows patchy segmental flow with heavy vascular calcification present causing very limited flow in the artery. Popliteal artery is large is supplied by a large muscular branch collateral vessels from the thigh. There is three-vessel vascular flow in the lower leg down to the distal third of the left tibia below which the peroneal artery is occluded. The left anterior and posterior tibial artery supply the ankle and foot. Borderline cardiomegaly with moderate coronary artery calcifications present. Prior cholecystectomy no biliary ductal dilatation. Sm all hypodense masses are present in the relatively at trophic renal parenchyma bilaterally. 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 No further follow-up is recommended. Moderately severe distal colonic diverticulosis no evidence of diverticulitis. No bowel obstruction. No free peritoneal air. A peritoneal dialysis catheter is present with the distal tip coiled in the pelvis. A large amount of peritoneal dialysate fluid versus renal failure related ascites is present in the peritoneal cavity. There are multiple levels of chronic degenerative vertebral body endplate osteophytosis anteriorly in the mid lower thoracic spine together with a multilevel calcification of the anterior longitudinal ligament of the spine and intervertebral discs which probably represents diffuse idiopathic skeletal hyperostosis. Assessment/plan: 75-year-old male with past medical history of coronary artery disease status post stenting, hyperlipidemia, hypertension, ESRD on peritoneal dialysis, BPH, diet-controlled diabetes mellitus, hypothyroidism, peripheral vascular disease presented to emergency department on 08/25 chief complaint of low back pain that radiates to the thighs highly worse over the past 2 months which is now constant in nature. 1. Sudden onset left leg pain. CT angiogram shows that the patient does have vascular flow to the lower extremities. Patient says that the pain is better after receiving 2 mg of IV morphine earlier in the afternoon. I did go back and examine the patient and the leg did feel warmer to the touch. CT angiogram showed that the vessels to reconstitute. Patient will need vascular surgery follow-up once discharged from the hospital. We will keep the patient an additional night. 2. Back pain. Most likely combination of osteoarthritis and claudication from severe peripheral vascular disease/spinal stenosis. Patient will continue with tramadol. 3. Symptomatic anemia. Patient was transfused unit packed red blood cells and was feeling better. Stool occult blood was negative. 4. ESRD on peritoneal dialysis. Continue treatment per nephrology. I appreciate Dr. Joshua's help treating patient. 5. Hypertension. Continue home medications. 6. Coronary artery disease. Continue isosorbide, nitroglycerin, aspirin and Plavix. 7. BPH. Continue Terazosin. 8. Epilepsy. Continue home medications. 9. Hypothyroidism. Continue home medications. 10. Hyperlipidemia. Continue rosuvastatin. 11. Peripheral vascular disease. Patient will need to follow-up with vascular surgery outpatient. DVT Prophylaxis: Heparin Disposition: Pending clinical improvement, possible discharge tomorrow Rosalio GARCIA, I+O VSRosalio I+O Laboratory Tests 08/27/21 06:28 Vital Signs Date Time Temp Pulse Resp B/P (MAP) Pulse Ox O2 Delivery O2 Flow Rate FiO2 08/27/21 14:59 103/61 08/27/21 14:00 97.3 79 18 95 Room Air I&O- Last 24 Hours up to 6 AM 08/27/21 06:00 Intake Total 9240 ml Output Total 70155 ml Balance -1360 ml TIMA,ADAM Aug 27, 2021 18:40
[2021-08-27] MEDS: ROSUVASTATIN 10 MG TAB (CRESTOR) PO SCH (20:13)
[2021-08-27] MEDS: FOSINOPRIL 10MG TABLET PO SCH (21:00)
[2021-08-27] MEDS ORDERED: ACETAMINOPHEN *IV* 650 MG in IV 1 EA IV ONE (22:10)
[2021-08-28] MEDS: ACETAMINOPHEN TAB 650MG DOSE (2X325MG) PO PRN (02:03)
[2021-08-28] MEDS: LEVOTHYROXINE 75MCG TABLET (0.075MG) PO SCH (05:47)
[2021-08-28 05:55] VITALS: BP 122/72
[2021-08-28 07:36] LABS: HEMOGLOBIN 10.6 g/dl (13.5-17.5); MEAN CORPUSCULAR HEMOGLOBIN 34.8 pg (27.0-33.0); MEAN CORPUSCULAR HGB CONC 34.2 g/dl (32.0-36.5); MEAN CORPUSCULAR VOLUME 101.6 fl (80.0-96.0); PLATELET COUNT, AUTOMATED 194 10^3/uL (150-450); RED BLOOD COUNT 3.05 10^6/uL (4.30-6.10); WHITE BLOOD COUNT 8.5 10^3/uL (4.0-10.0)
[2021-08-28 08:57] LABS: CALCIUM LEVEL 9.2 MG/DL (8.8-10.2); CREATININE FOR GFR 12.5 MG/DL (0.70-1.30); GLOMERULAR FILTRATION RATE 4.2 (>42); MAGNESIUM LEVEL 2.6 MG/DL (1.8-2.4); POTASSIUM SERUM 3.6 MEQ/L (3.5-5.1)
[2021-08-28] MEDS: NEOSPORIN TOP OINT 15GM TOP SCH (10:44)
[2021-08-28] MEDS: HEPARIN SOD (PORCINE) 5000UNITS/ML 1ML VIAL/SYRINGE SC SCH (10:44)
[2021-08-28 10:45] VITALS: BP 152/74
[2021-08-28] MEDS: (RENVELA) SEVELAMER **CARBONate** 800 MG TAB PO SCH ×2 (10:45→12:22)
[2021-08-28] MEDS: ISOSORBIDE DIN. (ISORDIL) 20 MG TAB PO SCH (10:45)
[2021-08-28] MEDS: levETIRAcetam **XR** 750MG TABLET (KEPPRA XR) PO SCH (10:45)
[2021-08-28] MEDS: TERAZOSIN 5MG CAPSULE PO SCH (10:45)
[2021-08-28] MEDS: CLOPIDOGREL 75 MG TAB PO SCH (10:46)
[2021-08-28] MEDS: LORATADINE 10 MG TAB PO SCH (10:46)
[2021-08-28] MEDS: ASPIRIN 81MG ENTERIC TABLET PO SCH (10:46)
[2021-08-28] MEDS: TORSEMIDE 20 MG TAB PO SCH (10:46)
[2021-08-28] MEDS: DIVALPROEX 500MG *ER* TAB PO SCH (10:46)
[2021-08-28] MEDS: VITAMIN D 1,000 INTERNATIONAL UNITS TABLET PO SCH (10:47)
[2021-08-28] MEDS: DOCUSATE SODIUM 100MG CAPSULE PO SCH (10:47)
[2021-08-28] MEDS: **hydrALAZINE** 50 MG TAB PO SCH (10:47)
[2021-08-28] MEDS: allopurinoL 100 MG TAB PO SCH (10:47)
[2021-08-28] MEDS: OYSTER SHELL CALCIUM 500 MG TAB PO SCH (10:47)
[2021-08-28] MEDS: METOPROLOL SUCC *XL* 25MG TAB (TopROL *XL*) PO SCH (10:47)
[2021-08-28] MEDS ORDERED: MORPHINE 2 MG/ML 1ML VIAL (J2270) IV ONE (10:55)
[2021-08-28] MEDS ORDERED: HEPARIN DRIP 25,000 UNITS in IV 1 EA IV SCH (11:20)
[2021-08-28] MEDS ORDERED: HEPARIN SOD (PORCINE) 5000UNITS/ML 1ML VIAL/SYRINGE IV PRN (11:20)
[2021-08-28] MEDS ORDERED: HEPARIN SOD (PORCINE) 5000UNITS/ML 1ML VIAL/SYRINGE IV ONE (11:20)
[2021-08-28 11:55] LABS: HEMATOCRIT 30.5 % (42.0-52.0); HEMOGLOBIN 10.7 g/dl (13.5-17.5); MEAN CORPUSCULAR HEMOGLOBIN 35.2 pg (27.0-33.0); MEAN CORPUSCULAR HGB CONC 35.1 g/dl (32.0-36.5); MEAN CORPUSCULAR VOLUME 100.3 fl (80.0-96.0); PLATELET COUNT, AUTOMATED 190 10^3/uL (150-450); RED BLOOD COUNT 3.04 10^6/uL (4.30-6.10); WHITE BLOOD COUNT 11.1 10^3/uL (4.0-10.0)
--- NOTE | 2021-08-28 12:20 | DS.PDOC ---
Discharge Summary General Date of Admission Aug 25, 2021 at 21:59 Date of Discharge 08/28/2021 Attending Physician: OLIVIER ALFRED DO Specialist/Consultants Involve: Sky Joshua MD Discharge Summary PROCEDURES PERFORMED DURING STAY: None. ADMITTING DIAGNOSES: 1. Back/leg pain. 2. Symptomatic anemia 3. ESRD 4. Hypertension 5. Coronary artery 6. BPH 7. Epilepsy 8. Hypothyroidism 9. Hyperlipidemia DISCHARGE DIAGNOSES: 1. Acute onset lower left leg pain with diminished pulses. 2. Back/leg pain, improved 3. Symptomatic anemia, improved 4. ESRD on peritoneal dialysis 5. Hypertension 6. Coronary artery disease 7. BPH 8. Epilepsy 9. Hypothyroidism 10. Hyperlipidemia COMPLICATIONS/CHIEF COMPLAINT: Anemia, Back Pain. HISTORY OF PRESENT ILLNESS: Patient is a 75-year-old male with past medical history of coronary artery disease status post stenting, hyperlipidemia, hypertension, ESRD on peritoneal dialysis, BPH, diet-controlled diabetes mellitus, hypothyroidism, peripheral vascular disease presented to the emergency department on 08/25/2021 with a chief complaint of low back pain that radiates into his thighs that has been steadily worsening over the past 2 months that is now constant in nature. Patient states that he feels as though the pain is more severe in the evenings when he lays down. Patient states that the pain is to the point where he does not feel like eating much and is no longer feeling like fishing something he used to do on daily basis. Patient tells the admitting provider that he occasionally develops some numbness in his bilateral feet however, he blames this on diabetic neuropathy and states that this is chronic. Patient denies any recent injury to the back. Patient admits to some mild abdominal discomfort, but blames this on his recent poor appetite. Patient at the time of the admitting providers examination denies any recent fevers, chills, chest pain, shortness of breath, nausea, vomiting, diarrhea, constipation, pedal edema, or syncope. HOSPITAL COURSE: Patient was admitted into the hospital for further work-up. Patient initially had a CT angiogram of the abdomen which did show some high- grade stenosis of the left common femoral artery and moderate atherosclerotic change in the left iliac arteries with moderate stenosis at the origin of the left internal iliac artery. Patient had peritoneal dialysis ordered by nephrology who continue to follow the patient throughout his hospitalization. Patient worked with physical therapy and with the addition of tramadol, the patient's back pain did improve to the point where the patient was able to walk around and said he was feeling well. Patient was going to be discharged home on 08/27/2021 however, patient started experiencing 10/10 lower extremity pain on the left side. Patient was reexamined after being examined in the morning which showed the patient's limb to be cool to the touch compared to the right side and had absent pulses. A call was made to interventional radiology about this who stated the patient should be seen by vascular surgeon. Transfer center at [facility] in [place], [place] was called and I spoke with a vascular surgeon and ordered a CT angiogram of the abdominal arteries with runoff to the legs. Vascular surgery stated that if the patient's not have an acute limb ischemia, patient will not need transfer for acute evaluation. Patient had CT angiogram of the leg performed which showed that the patient had blood flow down through the feet bilaterally. Patient said his leg was feeling better and on reexamination yesterday evening, the leg was warm to the touch and there were diminished but present pulses in the feet and the dorsalis pedis and posterior tibial bilaterally. This morning, 08/28/2021, patient began experiencing similar pain to the prior day. Because of this, I called interventional radiology again who stated that although the CT angiogram may be showing contrast getting down to the leg, this is only a snapshot in time and the patient may have acute on chronic vascular disease causing episodic ischemic- like pain in the leg and the patient should be evaluated by vascular surgery. Unfortunately, [facility] did not have vascular surgery coverage at this time so call was placed to [facility] transfer center who accepted the patient. Patient will be discharged from [facility] and transferred to [facility] in [place], [place]. Patient was started on heparin drip. Patient is on aspirin, Plavix, and statin therapy for peripheral vascular disease. Patient states he had a recent bilateral femoral- popliteal bypass performed in [place] about 6 months ago. Patient was agreeable to transfer. I did go through the risks and benefits of transfer with the patient and patient signed consent form for transfer and ground ambulance crew was called in order to bring the patient to [facility] in [place], [place]. DISCHARGE MEDICATIONS: Please see below. ALLERGIES: Please see below. PHYSICAL EXAMINATION ON DISCHARGE: VITAL SIGNS: Please see below. General: Alert and oriented male patient who was sitting up in bed when I walked into the room. Patient did not appear to be in any acute distress. HEENT: Normocephalic, atraumatic, moist mucous membranes. Neck: No lymphadenopathy or thyromegaly Cardiac: Regular rate and rhythm, no murmurs, normal S1, normal S2 Pulm: Clear to auscultation bilaterally. No wheezes, rhonchi, rales Abd: Nondistended, nontender to palpation, normal bowel sounds, peritoneal dialysis catheter is in place with no erythema surrounding the catheter site Ext: No edema bilateral lower extremities. 1/4 dorsalis and posterior tibial pulses in the right foot. Left foot is cool to the touch. Patient has motor and sensory function intact in bilateral feet. Left foot has thready dorsalis pedis pulse able to be palpated and thready posterior tibial pulses able to be palpated. LABORATORY DATA: Please see below. IMAGING: Bilateral hip x-ray performed on 08/25/2021 was reported to show degenerative changes. No fracture or dislocation. Bilateral knee x-ray performed on 08/25/2021 is reported to show no fracture or dislocation. Lumbar spine x-ray performed on 08/25/2021 was reported to show diffuse degenerative changes without fracture or dislocation. Chest x-ray performed on 08/25/2021 was reported to show no evidence of acute cardiopulmonary pathology. CT angiogram of the abdomen performed on 08/25/2021 was reported to show there has been a cholecystectomy. Moderate diverticulosis is present in the distal colon. No diverticulitis. Mild prostatic hyperplasia. Moderate arthrosclerotic changes in the abdominal aorta without evidence of aneurysm or dissection. Moderate atherosclerotic narrowing of the origin of the celiac, SMA and renal arteries. High-grade stenosis right internal iliac artery and moderate stenosis throughout the remaining iliac arteries bilaterally. High- grade narrowing at the left common femoral artery. Lower extremity bilateral duplex ultrasound performed on 08/25/2021 was reported to show no evidence of deep vein thrombosis. CT angio of the abdominal arteries with runoff to the legs performed on 08/27/2021 was reported to show no aortic aneurysm, no aortic dissection, arthrosclerotic calcific plaque disease is seen in the abdominal aorta and iliofemoral arteries. Kinking of the proximal celiac trunk is seen. There is 50 to 75% diameter stenosis present in the proximal superior mesenteric artery. Inferior mesenteric artery is patent however the origin is not visible. This could signify greater than 75% diameter stenosis in the origin of the AURORA. Moderate, 50 to 75% diameter stenosis of the proximal bilateral renal arteries is present. Right lower extremity arteries no occlusion of the right iliac arteries. Right femoral/popliteal arteries show the right superficial femoral artery is occluded secondary to heavy arthrosclerotic plaque disease. There is patent right femoral-popliteal vascular bypass graft present which constitutes flow to the right popliteal artery. Normal vascular flow is present the right anterior tibial and peroneal arteries with proximal posterior tibial artery occluded then distally constituted via a small collateral muscular artery at the level of the right mid tibia. There is normal three-vessel vascular supply to the right ankle and foot below the mid right tibia. Left iliac arteries show no occlusion or significant stenosis. Left femoral-popliteal arteries show a left femoral-popliteal vascular graft is present which is completely occluded shortly after its origin. The left superficial femoral artery shows patchy segmental flow with heavy vascular calcification present causing very limited flow in the artery. Popliteal artery is large is supplied by a large muscular branch collateral vessels from the thigh. There is three-vessel vascular flow in the lower leg down to the distal third of the left tibia below which the peroneal artery is occluded. The left anterior and posterior tibial artery supply the ankle and foot. Borderline cardiomegaly with moderate coronary artery calcifications present. Prior cholecystectomy no biliary ductal dilatation. Small hypodense masses are present in the relatively at trophic renal parenchyma bilaterally. 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 No further follow-up is recommended. Moderately severe distal colonic diverticulosis no evidence of diverticulitis. No bowel obstruction. No free peritoneal air. A peritoneal dialysis catheter is present with the distal tip coiled in the pelvis. A large amount of peritoneal dialysate fluid versus renal failure related ascites is present in the peritoneal cavity. There are multiple levels of chronic degenerative vertebral body endplate osteophytosis anteriorly in the mid lower thoracic spine together with a multilevel calcification of the anterior longitudinal ligament of the spine and intervertebral discs which probably represents diffuse idiopathic skeletal hyperostosis. PROGNOSIS: Good ACTIVITY: As tolerated. DIET: Renal diet DISCHARGE PLAN: Transfer to [facility] for vascular surgery evaluation. DISPOSITION: . DISCHARGE INSTRUCTIONS: 1. Follow-up with the vascular surgeon at [facility]. ITEMS TO FOLLOWUP ON ON OUTPATIENT: 1. None. DISCHARGE CONDITION: Stable. TIME SPENT ON DISCHARGE: 35 minutes. Vital Signs/I&Os Vital Signs Date Time Temp Pulse Resp B/P (MAP) Pulse Ox O2 Delivery O2 Flow Rate FiO2 08/28/21 11:28 18 Room Air 08/28/21 10:45 152/74 08/28/21 05:55 97.7 79 95 I&O- Last 24 Hours up to 6 AM 08/28/21 06:00 Intake Total 77113 ml Output Total 80334 ml Balance -2960 ml Laboratory Data Labs 24H Laboratory Tests 2 08/28/21 07:26: Nucleated Red Blood Cells % (auto) 0.5H, Anion Gap 11, Glomerular Filtration Rate 4.2L, Calcium Level 9.2, Magnesium Level 2.6H 08/28/21 11:37: Nucleated Red Blood Cells % (auto) 0.4H, Activated Partial Thromboplast Time 30.2 CBC/BMP Laboratory Tests 08/28/21 07:26 08/28/21 11:37 Microbiology Microbiology 08/26/21 Stool Occult Blood (SAMIR) - Final, Complete Discharge Medications Scheduled Allopurinol (Allopurinol) 100 Mg Tablet, 100 MG PO DAILY, (Reported) Aspirin (Aspirin EC) 81 Mg Tablet.dr, 81 MG PO DAILY, (Reported) Calcium Carbonate (Calcium Carbonate) 500 Mg Tablet, 500 MG PO BID, (Reported) Cholecalciferol (Vitamin D3) (Vitamin D3) 1,000 Unit Tablet, 1,000 UNITS PO DAILY, (Reported) Clopidogrel Bisulfate (Clopidogrel) 75 Mg Tablet, 75 MG PO DAILY, (Reported) Divalproex Sodium (Divalproex Sodium ER) 500 Mg Tab.er.24h, 500 MG PO BID, (Reported) Fosinopril Sodium (Fosinopril Sodium) 10 Mg Tablet, 5 MG PO QHS, (Reported) Hydralazine HCl (Hydralazine HCl) 50 Mg Tablet, 50 MG PO TID, (Reported) Isosorbide Dinitrate (Isosorbide Dinitrate) 20 Mg Tablet, 20 MG PO TID, (R eported) Levetiracetam (Levetiracetam ER) 750 Mg Tab.er.24h, 750 MG PO DAILY, (Reported) Levothyroxine Sodium (Levothyroxine Sodium) 75 Mcg Tablet, 75 MCG PO DAILY, (Reported) Loratadine (Loratadine) 10 Mg Tablet, 10 MG PO DAILY, (Reported) Metoprolol Succinate (Metoprolol Succinate) 25 Mg Tab.er.24h, 25 MG PO DAILY, (Reported) [place]-3 Fatty Acids/Fish Oil (Fish Oil 1,000 mg Capsule) 1 Each Capsule, 1,000 MG PO DAILY, (Reported) Rosuvastatin Calcium (Rosuvastatin Calcium) 10 Mg Tablet, 5 MG PO QHS, (Rep orted) Sevelamer Carbonate (Sevelamer Carbonate) 800 Mg Tablet, 1,600 MG PO WM, (Reported) Terazosin Hcl (Terazosin HCl) 10 Mg Capsule, 10 MG PO DAILY, (Reported) Torsemide (Torsemide) 20 Mg Tablet, 20 MG PO BID, (Reported) Vit A/Vit C/Vit E/Zinc/Copper (Preservision Areds Tablet) 1 Each Tablet, 1 TAB PO BID, (Reported) Scheduled PRN Epinephrine (Epipen 2-Junaid) 0.3 Mg/0.3 Ml Auto.injct, 0.3 MG IM ASDIRECTED PRN for ANAPHYLAXIS, (Reported) Nitroglycerin (Nitrostat) 0.4 Mg Tab.subl, 0.4 MG SL NITRO PRN for CHEST PAIN, (Reported) Propylene Glycol/Peg 400/Pf (Systane 0.3-0.4% Eye Drop) 1 Each Droperette, 1 DROP OU QID PRN for DRY EYES, (Reported) Tramadol HCl (Tramadol HCl) 50 Mg Tablet, 1 TAB PO BIDP PRN for pain Allergies Coded Allergies: oxycodone (Verified Allergy, Unknown, 08/25/21) OLIVIER ALFRED DO Aug 28, 2021 12:20
--- NOTE | 2021-08-28 12:39 | IPN ---
PROGRESS NOTE DATE: 08/28/2021 Mr. Dowell is seen this morning on his bedside. He was feeling okay, then suddenly he developed severe pain in his left lower extremity yesterday. He underwent an urgent CT angiogram, which did show blood flow to his left foot; however, he remains in pain. Unfortunately, vascular surgery service is not available at this hospital this week. Patient denies any fever, chills, nausea, or vomiting. He peritoneal dialysis has been working well. PHYSICAL EXAMINATION: Temperature 97.7 degrees Fahrenheit, heart rate 80 per minute, respiratory rate 18 per minute, blood pressure 152/74 mmHg, and oxygen saturation 95% on room air. Head is atraumatic. Neck supple and without jugular venous distention (JVD) or thyroid enlargement. Heart sounds are regular and lungs clear to auscultation. Abdomen soft and full with peritoneal dialysis solution. Bowel sounds are normal. Peritoneal dialysis catheter is intact. Extremities without any cyanosis or clubbing. Left lower extremity is colder than right below the knee. There are no acute ischemic changes other than feeling cold. Neurologically, he is awake, alert, and oriented times three. Today's labs show WBC count up to 11.1, hemoglobin 10.7, and hematocrit 30.5. Platelets 190. Sodium 131, potassium 3.6, BUN 87, and creatinine 12.5. Calcium 9.2 and magnesium 2.6. PROBLEMS: 1. End-stage renal disease. Patient remains on peritoneal dialysis with five exchanges per day, which is working very well, and we will continue with current prescription. 2. Anemia. His anemia is stable and improved. No urgent intervention is needed. He was transfused 1 unit of packed red blood cells (RBC) on the day of admission. 3. Peripheral vascular disease with left lower extremity pain. Patient has known history of severe vascular disease, and CT angiogram did show significant stenosis of his internal iliac and femoral arteries. He had another CT angiogram done of lower extremities yesterday. Patient will need to see vascular surgeon either as an outpatient, or he will need to be transferred to [place]. 4. Hyponatremia. Mild hyponatremia persists and is most likely related to end-stage renal disease and dialysis. No changes are being made today.
[2021-08-28] MEDS: traMADol 50 MG TAB PO PRN (13:55)
[2021-08-28 14:00] VITALS: BP 95/62
== END 2021-08-28 15:40 | disposition short-term general hospital (02) | DRG 299 ==
LOC: M ED 14:49 → M ED INP 21:59 → M MSPAV 08-26 00:27
PROVIDERS: ADMIT Family Medicine; ATTEND Family Medicine
PROC: 30233N1 Transfusion of Nonautologous Red Blood Cells into Peripheral Vein, Percutaneous Approach (ICD-10-PCS; principal; 2021-08-25)
PROC: 3E1M39Z Irrigation of Peritoneal Cavity using Dialysate, Percutaneous Approach (ICD-10-PCS; 2021-08-25)
DX: I70.213 Atherosclerosis of native arteries of extremities with intermittent claudication, bilateral legs (principal); N18.6 End stage renal disease; I12.0 Hypertensive chronic kidney disease with stage 5 chronic kidney disease or end stage renal disease; I25.10 Atherosclerotic heart disease of native coronary artery without angina pectoris; E78.5 Hyperlipidemia, unspecified; N40.0 Benign prostatic hyperplasia without lower urinary tract symptoms; G40.909 Epilepsy, unspecified, not intractable, without status epilepticus; E11.51 Type 2 diabetes mellitus with diabetic peripheral angiopathy without gangrene; E03.9 Hypothyroidism, unspecified; E11.42 Type 2 diabetes mellitus with diabetic polyneuropathy; I70.0 Atherosclerosis of aorta; D64.9 Anemia, unspecified; Z99.2 Dependence on renal dialysis; Z79.82 Long term (current) use of aspirin; Z79.02 Long term (current) use of antithrombotics/antiplatelets; Z95.5 Presence of coronary angioplasty implant and graft; Z79.899 Other long term (current) drug therapy; Z88.5 Allergy status to narcotic agent; Z98.62 Peripheral vascular angioplasty status

== ENCOUNTER 2021-09-09 15:28 | Emergency (ER) | payer OTHER ==
[~2021-09-09] VITALS: Ht 167.6 cm; Wt 68.2 kg
[~2021-09-09 15:28] MED LIST: ALLO100T PO; ASPI-161 PO; ASPI81CH33 PO; CALC260T PO; CALC500T61 PO; CLAR10CA3 PO; CLOP75TA2 PO; D31000TA2 PO; DIVA500T9 PO; EPIP0.3I2 IM; FISH1000 PO; FOSI10TA4 PO; HYDR-3911 PO; ICY1PAD EX; ISOS20TAB PO; LEVE750XR PO; LEVO75TA4 PO; LOPE1CAP5 PO; LORA-674 PO; METO1TAB32 PO; NITR0.4S14 SL; NITR4TASL SL; NOXI1TAB PO; OCUVTAB4 PO; PEG-SOL4 PO; ROSU10TA6 PO; SEVE800T3 PO; SYST1SOL4 OU; TERA10CA3 PO; TORS20TA2 PO; TRAM50TA2 PO
--- OUTSIDE RECORDS SUMMARY | 2021-09-09 15:35 | CCD | Continuity of Care Document ---
Author Author Emiliano ROSENTHAL M.D. 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 Onset: 08/28/2021 Hyperlipidemia Onset: 08/28/2021 Hypertensive disorder Onset: 08/28/2021 Ischemia of left lower extremity Onset: 08/28/2021 Pain in left foot Onset: 08/28/2021 Pain of left lower leg Onset: 08/28/2021 Paroxysmal ventricular tachycardia Onset : 08/29/2021 Patient encounter status Onset: 08/29/20 21 Social History Type Date Description Comments Sex Unknown Allergies and adverse reactions Active Allergies Criticality Reaction | Severity Comments Date Honey Bee Venom Unable to assess criticality Anaphylaxis | Severe 09/04/2021 Morphine And Related Unable to assess criticality Anaphylaxis | Sev ere 09/04/2021 Oxycodone Unable to assess criticality Anaphylaxis | Severe 09/04/2021 Medications Active Medications SIG Qnty Indications Ordering Provide r Date Hydrocodone Bitartrate/Acetaminophen 5-325mg Tablets Take 1 tablet by mouth every 6 (six) nayeli rs as needed Max Daily Amount: 4 tablets 20tabs Unknown 09/03/2021 Fosinopril Sodium 10mg Tablets Take 5 mg by mouth nightly Unknown Levetiracetam 750mg Tablets Take 750 mg by mouth 2 (two) times a day Unknown Cyclobenzaprine HCL 10mg Tablets Take 10 mg by mouth 3 (three) times a day as needed for muscle spasms Unknown Loperamide HCL 2mg Capsules Take 4 mg by mouth as needed for diarrhea Unknown Epinephrine 0.3mg/0. 3ML Solution Auto-Inject Inject 1 Package into the shoulder, thig h, or buttocks once Inject into thigh once for severe allergic reaction Unknown Ferrous Gluconate 324(37.5Fe) mg T ablets Take 324 mg by mouth 2 (two) times a day Unknown Hydralazine HCL 50mg Tablets Take 50 mg by mouth 3 (three) times a day Unknown [facility] D3 25mcg (1000 Ut) Capsules Take 1,000 Units by mouth daily Unknown Gentamicin Sulfate 0.1% Cream Apply 1 application topically daily Unknown Loratadine 10mg Tablets Take 10 mg by mouth daily as needed for allergies Unknown Levothyroxine Sodium 75mcg Tablets Take 75 mcg by mouth daily Unknown Isosorbide Dinitrate 20mg Tablets Take 20 mg by mouth 3 (three) times a day Unknown Clopidogrel Bisulfate 75mg Tablets Take 75 mg by mouth daily Unknown Calcium Carbonate Antacid 500mg Ch ewtabs Chew 1 tablet 2 (two) times a day Unknown Aspirin Ec Low Dose 81mg Tablets D R Take 81 mg by mouth daily Unknown Allopurinol 100mg Tablets Take 200 mg by mouth daily Unknown Torsemide 20mg Tablets Take 20 mg by mouth 2 (two) times a day Unknown Terazosin HCL 5mg Capsules Take 5 mg by mouth nightly Unknown Sevelamer HCL 800mg Tablets Take 1,600 mg by mouth 3 (three) times a day with meals Unknow n Rosuvastatin Calcium 10mg Tablets Take 5 mg by mouth daily Unknown Systane 0.4-0.3% Solution Administer 1-2 drops to both eyes every 4 (four) hours as needed (dry eye) Unknown Nitroglycerin 0.4mg Tablets Sub Place 0.4 mg under the tongue every 5 (five) minutes as needed for chest pain Unknown Metoprolol Succinate ER 25mg Tablets ER 24HR Take 12.5 mg by mouth daily Unknown Immunizations CPT Code Status Date Vaccine Lot # [id number] Given 07/01/2021 Influenza Virus Vaccine Vital Signs Date Vital Result Comment 09/03/2021 1:10pm Heart Rate 94 /min Body Temperature 97.4 F Respiratory Rate 18 /min O2 % BldC Oximetry 97 % 09/02/2021 3:32am Weight 159.81 lb Weight 72.500 kg BMI (Body Mass Index) 25.03 kg/m2 Results Test Acquired Date Facility Test Result H/L Range Note Urine microscopic 09/03/2021 N2N/CCD Import WBC, Ua 0-2 0 - 5 [HPF] RBC, Ua None Seen 0 - 2 [HPF] Epithelial cells Ua 1+ [HPF] Amorphous, Ua 3+ [HPF] Urinalysis w/ hold tube for culture 09/03/2021 N2N/ CCD Import Color, Ua Yellow Appearance Cloudy Specific [place], Ua 1.026 1.003 - 1.030 pH, Urine 5.0 5.0 - 7.5 Leukocyte Esterase Negative Negative Nitrite, Ua Negative Negative Protein, Ua 1+ Abnormal Negative Glucose, Ua Negative Negative Ketones, Ua Trace Abnormal Negative Urobilinogen, Ua 0.2 mg/dL 0 - 1.0 Bilirubin, Ua Negative Negative Blood, Ua 2+ Abnormal Negative Urine specimen held in lab for culture 09/03/2021 N 2N/CCD Import Urine specimen held in lab for culture Urine Specimen Available In Lab For 24 Hours 1 Basic Metabolic Panel 09/03/2021 N2N/CCD Import Sodium 131 mmol/L Low 136 - 145 Potassium 3.5 mmol/L Low 3.6 - 5.2 Chloride 90 mmol/L Low 100 - 108 Co2 24 mmol/L 22 - 31 Anion Gap 17 mmol/L High 7 - 16 Urea nitrogen 82 mg/dL Critical high 7 - 24 2 Creatinine 14.00 mg/dL Critical high 0.80 - 1.30 3 BUN/Creatinine Ratio 5.9 Low 10.0 - 20.0 Ratio Glucose 84 mg/dL 70 - 99 Calcium 8.7 mg/dL 8.4 - 10.2 GFR MDRD Non Af Amer 3 Low >59 ml/min/1.73m2 GFR MDRD Af Amer 4 Low >59 ml/min/1.73m2 Glom Filt Rate, Est See Notes 4 CBC 09/03/2021 N2N/CCD Import WBC 13.5 10*3/uL High 4.10 - 11.00 RBC 2.53 10*6/uL Low 4.60 - 6.10 Hemoglobin 8.8 g/dL Low 13.5 - 18.0 Hematocrit 26.5 % Low 41.00 - 53.00 MCV 104.5 fL High 80.0 - 95.0 MCH 34.8 pg High 27.0 - 32.0 MCHC 33.3 g/dL 32 - 36 RDW 19.2 % High 10.5 - 14.5 Platelets 189 10*3/uL 150 - 450 MPV 9.2 fL 7.1 - 10.7 Phosphorus 09/02/2021 N2N/CCD Import Phosphorus 7.3 mg/dL High 2.5 - 4.5 CBC and differential 09/02/2021 N2N/CCD Import WBC 14.6 10*3/uL High 4.10 - 11.00 RBC 2.86 10*6/uL Low 4.60 - 6.10 Hemoglobin 9.9 g/dL Low 13.5 - 18.0 Hematocrit 30.1 % Low 41.00 - 53.00 MCV 105.4 fL High 80.0 - 95.0 MCH 34.8 pg High 27.0 - 32.0 MCHC 33.0 g/dL 32 - 36 RDW 20.0 % High 10.5 - 14.5 Platelets 202 10*3/uL 150 - 450 MPV 9.5 fL 7.1 - 10.7 Neutrophils % 78.0 % High 35.0 - 75.0 Lymphocytes Relative 13.0 % Low 16 - 52 Monocytes Relative 9.0 % High 0 - 8 Neutrophils Absolute 11.4 10*3/uL High 1 - 7 Lymphocytes Absolute 1.9 10*3/uL 1 - 4 Monocytes Absolute 1.3 10*3/uL High 0 - 0 Anisocytosis 2+ Poikilocytes 1+ Polychromasia 1+ Macrocytosis 1+ Ovalocytes 1+ Tear Drop Cells 1+ [place] Cells 1+ [facility] Histology 09/01/2021 N2N/CCD Import Histology See Note 5 Echo Transthoracic (Tte) 08/31/2021 N2N/CCD Import Bsa 1.82 m2 Pt Height 1.70 m Weight 71.22 kg Systolic BP Echo 134.00 mmHg Diastolic BP Echo 61.00 mmHg LV Length Amos (A2c) 9.82 cm LV Length Amos (A4c) 9.36 cm LV Area Amos (A2c) 38.50 cm2 LV Area Amos (A4c) 38.80 cm2 LV Edv (A2c) 123.00 cm3 LV Edv (A4c) 132.00 cm3 LV Diastolic Volume 130.00 cm3 LV Length Sys (A2c) 8.77 cm LV Length Sys (A4c) 7.92 cm LV Area Sys (A2c) 27.80 cm2 LV Esv (A2c) 74.00 cm3 LV Systolic Volume 74.00 cm3 Ivs 1.14 cm 0.6 - 1.1 Lvidd 5.56 cm 3.50 - 6.00 Lvot diameter 2.2 cm Lvot mn grad 2.0 mmHg Lvot peak Vti 18.30 cm Lvot Mean Manan 0.69 m/s Lvot peak manan 1.04 m/s Av Lvot peak gradient 4.00 mmHg PW 0.89 cm 0.6 - 1.1 MV E' Lateral Tissue Manan 0.12 m/s MV E' Tissue Velocity Lateral 0.08 m/s A2c Ef 40 Percent A4c Ef 44 Percent E/E' Lateral Ratio 11.30 no units Lvot area 3.80 cm2 Lvot stroke volume 69.53 cm3 LA size 1.93 cm LA size 3.31 cm LA size 3.55 cm LA size 3.61 cm LA size 3.73 cm LA size 3.79 cm LA size 3.80 cm LA size 3.76 cm LA size 3.76 cm LA size 3.73 cm LA size 3.67 cm LA size 3.64 cm LA size 3.55 cm LA size 3.43 cm LA size 3.34 cm LA size 3.15 cm LA size 3.06 cm LA size 2.91 cm LA size 2.66 cm LA size 2.26 cm Left atrial length medial-lateral (apical 4-chamber view) 3.24 cm LA Area Sys (A2c) 11.00 cm2 LA Esv (A2c) 28.90 cm3 Ao peak manan 1.86 m/s Av peak gradient 14.00 mmHg Ao root annulus 3.10 cm Ascending aorta 3.00 cm E wave decelartion time 165.00 ms MV Peak E Manan 1.34 m/s LV Diastolic Volume Index (A4c) 72.53 Av Velocity Ratio 0.56 LV Systolic Volume Index 40.7 mL/m2 LV Diastolic Volume Index 71.4 mL/m2 Echo Ef Estimated 55 % LV Edv Index (A2c) 67.58 LV Esv Index (A2c) 40.66 Poct glucose 08/30/2021 N2N/CCD Import Glucose, Poc 96 mg/dL 70 - 99 6 aPTT 08/30/2021 N2N/CCD Import aPTT 51.9 s High 22.0 - 34.3 Type and screen 08/30/2021 N2N/CCD Import Specimen Expiration Date 09/01/2021 Patient Abo/Rh B Positive Antibody Screen Negative Testing site Performed AT [address] [place] [address] Covid/Flu AB/RSV PCR 08/30/2021 N2N/CCD Import Specimen Description Nasopharyngeal Influenza A Negative Negative Influenza B Negative Negative RSV Negative Negative Comment See Notes 7 Covid19 Result Not Detected Not Detected 8 First Test Unknown [facility]ed [facility] [employer] No Symptomatic No Date Of Sympt Onset Not Applicable Hospitalized Yes Icu No Congregate Care Set No No Troponin I 08/29/2021 N2N/CCD Import Troponin I <0.05 <0.05 ng/mL 9 Magnesium 08/29/2021 N2N/CCD Import Magnesium 2.4 mg/dL 1.7 - 2.4 1 FOR ADD ON CULTURE 2 CONSISTENT WITH PREVIOUS RES ULTS 08/28/21 3 CONSISTENT WITH PREVIOUS RES ULTS 08/28/21 4 NORMAL KIDNEY FUNCTION OR MILD DISEASE - GFR >OR= 60 CHRONIC KIDNEY DISEASE - GFR 15 - 59 RENAL FAILURE - GFR <15 Est. GFR calculation based on the MDRD study equation, which assumes a steady state for creatinine. Est. GFR should not be used for medication dosing. 5 Laboratory [facility] [address] [place] [id number]# Surgical Pathology ReportPatient Name: Emiliano Dowellgillian: 5Accession #:[id number]) ReceivedA: Contents of left femoral arteryClinical Diagnosis and HistoryIschemic left footDIAGNOSISCONTENTS, Left Femoral Artery, Excision: Fibrocalcific Atherosclerotic Plaque. Gross Diagnosis Only. Gross DescriptionThe specimen is received in formalin labeled "contents of left femoralartery" and consists of multiple partially cylindrical fragments oftan-yellow to maroon atherosclerotic plaque material measuring inaggregate 6.1 cm in length with a diameter of up to 1.7 cm. Sectioningreveals calcification. No sections are submitted. [email or web address]/mwg Reported: 09/01/2021 11:29Electronically Signed Out By Anderson Delgado MD [facility] [place] [address] [id number] component performed at [facility] [employer] [facility], Histopathology, [address] [place] [address], [id number].Reported at [facility], [address] [place] [address], [address]. This report may includeimmunohistochemical or in-situ hybridization results. Testing wasdeveloped and the performance characteristics determined by [employer] as required by [employer] '88. The Fda hasdetermined that approval for specific use is not necessary for clinicaluse. The quality of Hematoxylin and Eosin stains and as applicable, forall immunohistochemical and/or special stains, including positive andnegative controls, were reviewed and considered appropriate.Icd codes I70.90CPT codesA: 34196Q 6 PERFORMED BY [facility] 7 SEE NOTE: THE U.S. FDA HAS M SANDIP THIS TEST AVAILABLE UNDER AN EMERGENCY USE AUTHORIZATION (EUA) FOR THE DETECTION AND/OR DIAGNOSIS OF THE VIRUS THAT CAUSES COVID-19. PERFORMED AT [address] [facility] [address] 8 THIS ASSAY AMPLIFIES AND DET ECTS THE TARGET RNA USING REAL-TIME PCR. TESTING PERFORMED ON [employer] NEGATIVE 2019_NCOV RT-PCR RESULTS DO NOT PRECLUDE 2019_NCOV INFECTION AND SHOULD NOT BE USED THE SOLE BASIS FOR PATIENT MANAGEMENT DECISIONS. 9 Less than 0.05: Myocardial i njury unlikely Greater than or equal to 0.05: Highly suggestive of myocardial injury Correlation with rise and/or fall of serial troponins, clinical symptoms and ECG changes is necessary. Procedures Date Code Description Status 09/02/2021 80541 Radiologic Exam, Chest, Single V iew Completed 08/31/2021 31027 Radiologic Exam, Chest, Single V iew Completed 08/30/2021 12506 Angiography-Extremity Unilateral Completed 08/30/2021 62960 Introduce Needle/Intracatheter E xtremity Artery Completed 08/29/2021 66211 Cardiovascular Stress Test Becky ng Only Completed 08/29/2021 63037 Electrocardiogram Tracing Only C ompleted 08/29/2021 98989 Myocardial Perfusion Imaging Tomographic (Spect) Multiple Studies Completed 08/29/2021 86843 Comp Tomogrp Angiog AB Aorta & Bilateral Iliofemoral LW Ext Runof Completed 08/28/2021 71802 Hospital Subsequent Care Level 2 Completed 08/28/2021 50680 Duplex Scan Lower Extremity, Fol low-Up Or Limited Completed 08/28/2021 38818 Electrocardiogram Complete Compl eted Medical Devices Description No Information Available Encounters Type Date Location Provider Dx Diagnosis Office Visit 08/28/2021 5:00p Main Office Lalo Rosenthal M.D. 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 08/28/2021 I70.302 Unspecified atherosc lerosis of unspecified type of bypass graft(s) of the extremities, left leg Lalo Rosenthal M.D. 08/28/2021 Z95.828 Presence of other vascular impla nts and grafts Lalo Rosenthal M.D. Plan of Treatment Future Appointment(s):* 09/18/2021 2:15 pm - Lalo Rosenthal M.D. at Main Office Functional Status Description No Information Available Mental Status Description No Information Available Referrals Refer to Reason for Referral Status Appt Date Lalo Rosenthal M.D. Created 0 000 [address] [facility] 5168[address] [place] [address] [phone]
--- OUTSIDE RECORDS SUMMARY | 2021-09-09 15:35 | CCD | Continuity of Care Document ---
Author Author Emiliano ROSENTHAL M.D. Organization Unknown Address [address] [place] [address] Phone [phone] Problems Active Problems Provider Date Coronary atherosclerosis [...] CPT Code Status Date Vaccine Lot # [id number] Given 07/01/2021 Influenza Virus Vaccine Vital Signs [...] Import Color, Ua Yellow Appearance Cloudy Specific [place], Ua 1.026 1.003 - 1.030 pH, Urine [...] 1+ Ovalocytes 1+ Tear Drop Cells 1+ [place] Cells 1+ [facility] Histology 09/01/2021 N2N/CCD Import [...] Antibody Screen Negative Testing site Performed AT [address] [place] [address] Covid/Flu AB/RSV PCR 08/30/2021 N2N/CCD Import Specimen Description Nasopharyngeal Influenza A Negative Negative Influenza B Negative Negative RSV Negative Negative Comment See Notes 7 Covid19 Result Not Detected Not Detected 8 First Test Unknown [facility] [employer] No Symptomatic No Date Of Sympt [...] be used for medication dosing. 5 Laboratory [facility] [address] [place] [id number]# Surgical Pathology ReportPatient Name: Emiliano Dowellgillian: 5Accession #:[id number]) ReceivedA: Contents of left femoral arteryClinical Diagnosis [...] 11:29Electronically Signed Out By Anderson Delgado MD [facility] [place] [id number] component performed at [facility], Histopathology, [address] [place] [address], [address].Reported at [facility], [address] [place] [address], [address]. This report may includeimmunohistochemical or in-situ hybridization results. Testing wasdeveloped and the performance characteristics determined by [employer] as required by [employer] '88. The Fda hasdetermined that approval for specific use is not necessary for clinicaluse. The quality of Hematoxylin and Eosin stains and as applicable, forall immunohistochemical and/or special stains, including positive andnegative controls, were reviewed and considered appropriate.Icd codes I70.90CPT codesA: 24957S 6 PERFORMED BY [facility] 7 SEE NOTE: THE U.S. FDA HAS M SANDIP THIS TEST AVAILABLE UNDER AN EMERGENCY USE AUTHORIZATION (EUA) FOR THE DETECTION AND/OR DIAGNOSIS OF THE VIRUS THAT CAUSES COVID-19. PERFORMED AT [address] [facility] [address] 8 THIS ASSAY AMPLIFIES AND DET ECTS THE TARGET RNA USING REAL-TIME PCR. TESTING PERFORMED ON [employer] NEGATIVE 2019_NCOV RT-PCR RESULTS DO NOT PRECLUDE 2019_NCOV INFECTION AND SHOULD NOT BE USED THE SOLE BASIS FOR PATIENT MANAGEMENT DECISIONS. 9 Less than 0.05: Myocardial i njury unlikely Greater than or equal to 0.05: Highly suggestive of myocardial injury Correlation with rise and/or fall of serial troponins, clinical symptoms and ECG changes is necessary. Procedures Date Code Description Status 09/02/2021 68542 Radiologic Exam, Chest, Single V iew Completed 08/31/2021 90501 Radiologic Exam, Chest, Single V iew Completed 08/30/2021 99807 Angiography-Extremity Unilateral Completed 08/30/2021 85478 Introduce Needle/Intracatheter E xtremity Artery Completed 08/29/2021 65237 Cardiovascular Stress Test Becky ng Only Completed 08/29/2021 08032 Electrocardiogram Tracing Only C ompleted 08/29/2021 13546 Myocardial Perfusion Imaging Tomographic (Spect) Multiple Studies Completed 08/29/2021 34704 Comp Tomogrp Angiog AB Aorta & Bilateral Iliofemoral LW Ext Runof Completed 08/28/2021 50573 Hospital Subsequent Care Level 2 Completed 08/28/2021 51453 Duplex Scan Lower Extremity, Fol low-Up Or Limited Completed 08/28/2021 56507 Electrocardiogram Complete Compl eted Medical Devices Description [...] Lalo Rosenthal M.D. Created 0 000 104 [facility] 1235[address] [place] [address] [phone]
[2021-09-09] MEDS ORDERED: NS 2,050 ML in IV 1 EA IV ONE (16:10)
[2021-09-09] MEDS ORDERED: NS 500 ML IV ONE (16:25)
[2021-09-09] MEDS ORDERED: VANCOMYCIN HCL 1,250 MG in NS 250 ML IV ONE (16:25)
[2021-09-09] MEDS ORDERED: VANCOMYCIN HCL 750 MG, VIAL MATE ADAPTER 1 EACH in NS 250 ML IV ONE (16:30)
[2021-09-09] MEDS ORDERED: VANCOMYCIN HCL 500 MG in D5W MINI-BAG PLUS 100 ML IV ONE (16:30)
[2021-09-09 16:39] LABS: BASO # 0.1 10^3/uL (0.0-0.2); BASO % 0.8 % (0.0-1.0); EOS # 0.3 10^3/uL (0.0-0.5); EOS % 2.8 % (0.0-3.0); HEMATOCRIT 28.9 % (42.0-52.0); HEMOGLOBIN 9.6 g/dl (13.5-17.5); LYMPH # 1.9 10^3/uL (1.5-5.0); LYMPH % 15.4 % (24.0-44.0); MEAN CORPUSCULAR HEMOGLOBIN 33.8 pg (27.0-33.0); MEAN CORPUSCULAR HGB CONC 33.2 g/dl (32.0-36.5); MEAN CORPUSCULAR VOLUME 101.8 fl (80.0-96.0); MONO # 1.5 10^3/uL (0.0-0.8); MONO % 12.3 % (2.0-8.0); NEUTROPHILS # 8.1 10^3/uL (1.5-8.5); NEUTROPHILS % 65.8 % (36.0-66.0); PLATELET COUNT, AUTOMATED 373 10^3/uL (150-450); RED BLOOD COUNT 2.84 10^6/uL (4.30-6.10); WHITE BLOOD COUNT 12.2 10^3/uL (4.0-10.0)
[2021-09-09 16:44] VITALS: BP 160/92
--- NOTE | 2021-09-09 16:46 | REP ---
INDICATION: SEPSIS/SHOCK. COMPARISON: 08/25/2021 PA and lateral TECHNIQUE: Portable FINDINGS: The technique utilized in obtaining the radiograph has magnified the cardiac silhouette and accentuated the interstitial markings. The superior mediastinal structures are midline. The cardiac silhouette is unremarkable in size, shape, and position. The diaphragmatic surfaces of the lungs are regular, and the costophrenic angles are clear. The pulmonary holly are clear. The imaged osseous structures are intact. IMPRESSION: There is no acute cardiopulmonary disease. <Electronically signed by Davide Allen > 09/09/21 9384
[2021-09-09 16:55] LABS: INR 2.71; PROTHROMBIN TIME 29.1 SECONDS (12.7-14.5)
[2021-09-09 16:56] LABS: PARTIAL THROMBOPLASTIN TIME 55.9 SECONDS (25.9-37.0)
[2021-09-09 17:21] LABS: ALT/SGPT 19 U/L (12-78); AMYLASE 38 U/L (25-115); BILIRUBIN,DIRECT < 0.1 MG/DL (0.0-0.2); BILIRUBIN,TOTAL 0.4 MG/DL (0.2-1.0); BLOOD UREA NITROGEN 95 MG/DL (7-18); CALCIUM LEVEL 8.8 MG/DL (8.8-10.2); CARBON DIOXIDE LEVEL 21 MEQ/L (21-32); CHLORIDE LEVEL 92 MEQ/L (98-107); CK-MB VALUE MASS 4.7 NG/ML (<3.6); CPK CREATINE PHOSPHOKINASE 688 U/L (39-308); FREE T4 1.14 NG/DL (0.76-1.46); GLOMERULAR FILTRATION RATE 3.6 (>42); GLUCOSE, FASTING 93 MG/DL (70-100); MB/CK RELATIVE INDEX 0.68 (< OR =4); POTASSIUM SERUM 4.7 MEQ/L (3.5-5.1); SODIUM LEVEL 132 MEQ/L (136-145); TOTAL PROTEIN 6.3 GM/DL (6.4-8.2); TROPONIN I 0.13 NG/ML (< 0.10)
== END 2021-09-09 18:47 | disposition left against medical advice (07) ==
LOC: M ED 15:28
DX: R10.9 Unspecified abdominal pain (principal); R19.7 Diarrhea, unspecified; N18.6 End stage renal disease; I50.9 Heart failure, unspecified; I11.0 Hypertensive heart disease with heart failure; E11.9 Type 2 diabetes mellitus without complications; I25.2 Old myocardial infarction; E78.5 Hyperlipidemia, unspecified; N40.0 Benign prostatic hyperplasia without lower urinary tract symptoms; G40.909 Epilepsy, unspecified, not intractable, without status epilepticus; Z99.2 Dependence on renal dialysis; Z95.5 Presence of coronary angioplasty implant and graft; Z79.899 Other long term (current) drug therapy; Z79.890 Hormone replacement therapy; Z79.82 Long term (current) use of aspirin; Z87.891 Personal history of nicotine dependence

== ENCOUNTER 2021-11-08 10:14 | Emergency (ER) | payer OTHER ==
[~2021-11-08 10:14] MED LIST changes: +CEPH250T PO; +FERR324T21 PO; -FOSI10TA4 PO; +FOSI10TA44 PO; +FOSR1000 PO; +GENT1OI TOP; +ISOS20TA4 PO; -ISOS20TAB PO
[2021-11-08 11:44] LABS: BASO # 0.1 10^3/uL (0.0-0.2); BASO % 0.6 % (0.0-1.0); EOS # 0.1 10^3/uL (0.0-0.5); EOS % 0.9 % (0.0-3.0); HEMATOCRIT 29.7 % (42.0-52.0); LYMPH # 1.5 10^3/uL (1.5-5.0); LYMPH % 13.4 % (24.0-44.0); MEAN CORPUSCULAR HEMOGLOBIN 33.4 pg (27.0-33.0); MEAN CORPUSCULAR HGB CONC 33.7 g/dl (32.0-36.5); MEAN CORPUSCULAR VOLUME 99.3 fl (80.0-96.0); MONO % 14.5 % (2.0-8.0); NEUTROPHILS # 7.8 10^3/uL (1.5-8.5); NEUTROPHILS % 68.8 % (36.0-66.0); PLATELET COUNT, AUTOMATED 206 10^3/uL (150-450); RED BLOOD COUNT 2.99 10^6/uL (4.30-6.10); WHITE BLOOD COUNT 11.4 10^3/uL (4.0-10.0)
[2021-11-08 11:45] VITALS: BP 90/42
[2021-11-08 12:29] LABS: ALBUMIN 1.9 GM/DL (3.2-5.2); BILIRUBIN,DIRECT 0.2 MG/DL (0.0-0.2); BILIRUBIN,TOTAL 0.4 MG/DL (0.2-1.0); CALCIUM LEVEL 8.8 MG/DL (8.8-10.2); CREATININE FOR GFR 14.3 MG/DL (0.70-1.30); GLOMERULAR FILTRATION RATE 3.6 (>42); MONO # 1.7 10^3/uL (0.0-0.8); POTASSIUM SERUM 3.1 MEQ/L (3.5-5.1); TOTAL PROTEIN 5.2 GM/DL (6.4-8.2)
[2021-11-08] MEDS ORDERED: fentaNYL 100 MCG/2 ML INJECTION (J3010) IV ONE (12:35)
[2021-11-08 12:38] LABS: RSV AMPLIFICATION NEGATIVE (NEGATIVE)
[2021-11-08] MEDS ORDERED: VANCOMYCIN HCL 1,000 MG in IV FLUID PLACE HOLDER 1 EA IV ONE (12:45)
[2021-11-08] MEDS ORDERED: VANCOMYCIN HCL 1,000 MG, VIAL MATE ADAPTER 1 EACH in NS 250 ML IV ONE (13:00)
[2021-11-08] MEDS ORDERED: GENTAMICIN 160 MG in D5W 50 ML IV ONE (14:00)
== END 2021-11-08 15:57 | disposition left against medical advice (07) ==
LOC: EDBD 10:14 → M ED 10:14
DX: K65.9 Peritonitis, unspecified (principal); N18.6 End stage renal disease; Z53.9 Procedure and treatment not carried out, unspecified reason; I25.10 Atherosclerotic heart disease of native coronary artery without angina pectoris; E11.9 Type 2 diabetes mellitus without complications; E78.5 Hyperlipidemia, unspecified; I10 Essential (primary) hypertension; Z79.890 Hormone replacement therapy; Z79.899 Other long term (current) drug therapy
CPT/HCPCS: 71045; 80048; 80076; 83605; 85025; 87040; 87631; 93041; 94760; 96365; 96366; 96367; 99285; J1580; J3370

== ENCOUNTER 2021-11-11 14:41 | Inpatient (IN) | payer OTHER ==
[~2021-11-11] VITALS: Ht 167.6 cm; Wt 68.8 kg
[2021-11-11 15:45] LABS: VENOUS HCO3 20.7 MEQ/L (23.0-27.0); VENOUS O2 SATURATION 36.4 % (60.0-80.0); VENOUS PARTIAL PRESSURE CO2 32.4 mmHg (38.0-50.0); VENOUS PARTIAL PRESSURE O2 23.9 mmHg (30.0-50.0); VENOUS PH 7.423 UNITS (7.330-7.430); VENOUS STANDARD HCO3 20.8 MEQ/L; VENOUS TOTAL CO2 21.7 MEQ/L (24.0-28.0)
[2021-11-11 16:03] LABS: BASO # 0.1 10^3/uL (0.0-0.2); BASO % 0.7 % (0.0-1.0); EOS # 0.1 10^3/uL (0.0-0.5); EOS % 0.4 % (0.0-3.0); HEMATOCRIT 30.7 % (42.0-52.0); HEMOGLOBIN 10.3 g/dl (13.5-17.5); LYMPH % 15.1 % (24.0-44.0); MEAN CORPUSCULAR HEMOGLOBIN 33.4 pg (27.0-33.0); MEAN CORPUSCULAR HGB CONC 33.6 g/dl (32.0-36.5); MEAN CORPUSCULAR VOLUME 99.7 fl (80.0-96.0); MONO # 1.4 10^3/uL (0.0-0.8); MONO % 10.6 % (2.0-8.0); NEUTROPHILS # 9.1 10^3/uL (1.5-8.5); NEUTROPHILS % 68.5 % (36.0-66.0); PLATELET COUNT, AUTOMATED 245 10^3/uL (150-450); RED BLOOD COUNT 3.08 10^6/uL (4.30-6.10); WHITE BLOOD COUNT 13.4 10^3/uL (4.0-10.0)
[2021-11-11 16:28] LABS: RSV AMPLIFICATION NEGATIVE (NEGATIVE)
[2021-11-11 16:38] LABS: BILIRUBIN,DIRECT 0.2 MG/DL (0.0-0.2); BILIRUBIN,TOTAL 0.3 MG/DL (0.2-1.0); CREATININE FOR GFR 14.4 MG/DL (0.70-1.30); GLOMERULAR FILTRATION RATE 3.6 (>42); THYROID STIMULATING HORMONE 16.1 uIU/ML (0.358-3.740); TOTAL PROTEIN 5.1 GM/DL (6.4-8.2); VALPROIC ACID (DEPAKOTE) 45.1 UG/ML (50.0-100.0)
[2021-11-11] MEDS ORDERED: POTASSIUM CHLORIDE 10MEQ SR TABLET PO ONE (16:50)
[2021-11-11] MEDS ORDERED: TRAZ-252 PO (17:07)
[2021-11-11] MEDS ORDERED: ROPI0.253 PO (17:07)
[2021-11-11] MEDS ORDERED: METR-265 PO (17:07)
[2021-11-11] MEDS ORDERED: ONDA-83 PO (17:07)
[2021-11-11] MEDS ORDERED: CIPR250T3 PO (17:07)
[2021-11-11] MEDS ORDERED: HOME MED LIST COMPLETE! XX SCH (17:10)
[2021-11-11] MEDS ORDERED: ONDANSETRON 4 MG TAB PO PRN (17:25)
[2021-11-11] MEDS ORDERED: CIPROFLOXACIN 400 MG in IV 1 EA IV SCH (17:40)
[2021-11-11] MEDS ORDERED: PILL CUTTER 1 EACH XX PRN (17:45)
[2021-11-11] MEDS: HumaLOG INSULIN (NovoLOG) PER UNIT SC SCH (18:00)
[2021-11-11] MEDS: metroNIDAZOLE 500 MG in IV 1 EA IV SCH (18:00)
[2021-11-11] MEDS ORDERED: D5W/0.9% SODIUM CHLORIDE 1,000 ML IV ONE (18:05)
[2021-11-11] MEDS: D5W/0.9% SODIUM CHLORIDE 1,000 ML IV SCH (18:05)
[2021-11-11] MEDS: LANTHANUM CARBONATE 500 MG CHEW TABLET PO SCH (18:47)
[2021-11-11] MEDS ORDERED: GLUCOSE 4GM CHEW TABLET PO PRN (18:50)
[2021-11-11] MEDS ORDERED: HALOPERIDOL 5MG/ML VIAL (J1630 PER 1) IV ONE (18:50)
[2021-11-11] MEDS ORDERED: DEXTROSE 50% 50 ML SYRINGE IV PRN (18:50)
[2021-11-11] MEDS ORDERED: GLUCAGON INJ 1MG VIAL SC PRN (18:50)
[2021-11-11] MEDS: levETIRAcetam INJection 750 MG in D5W 100 ML IV SCH (19:00)
[2021-11-11] MEDS: ROSUVASTATIN 10 MG TAB (CRESTOR) PO SCH (20:13)
[2021-11-11] MEDS: METOPROLOL SUCC *XL* 25MG TAB (TopROL *XL*) PO SCH (20:16)
[2021-11-11] MEDS: DIVALPROEX 500MG *ER* TAB PO SCH (20:17)
[2021-11-11] MEDS: traZODone 50 MG TAB PO PRN (20:28)
[2021-11-11] MEDS ORDERED: levETIRAcetam **XR** 750MG TABLET (KEPPRA XR) PO SCH (21:00)
[2021-11-11 22:30] VITALS: BP 136/70
[2021-11-11] MEDS: FERROUS GLUCONATE 324 MG TAB PO SCH (23:23)
[2021-11-11] MEDS: rOPINIRole 0.25 MG TAB(REQUIP) PO SCH (23:23)
[2021-11-11] MEDS: OCUVITE 1 TAB PO SCH (23:24)
[2021-11-12] MEDS: metroNIDAZOLE 500 MG in IV 1 EA IV SCH ×3 (02:23→18:34)
[2021-11-12 05:41] VITALS: BP 150/70
[2021-11-12] MEDS: HumaLOG INSULIN (NovoLOG) PER UNIT SC SCH ×4 (06:00→17:11)
[2021-11-12 06:09] LABS: HEMATOCRIT 28.3 % (42.0-52.0); HEMOGLOBIN 9.5 g/dl (13.5-17.5); MEAN CORPUSCULAR HEMOGLOBIN 33.8 pg (27.0-33.0); MEAN CORPUSCULAR HGB CONC 33.6 g/dl (32.0-36.5); MEAN CORPUSCULAR VOLUME 100.7 fl (80.0-96.0); PLATELET COUNT, AUTOMATED 202 10^3/uL (150-450); RED BLOOD COUNT 2.81 10^6/uL (4.30-6.10); WHITE BLOOD COUNT 12.6 10^3/uL (4.0-10.0)
[2021-11-12] MEDS: LEVOTHYROXINE 75MCG TABLET (0.075MG) PO SCH (06:50)
[2021-11-12] MEDS: levETIRAcetam INJection 750 MG in D5W 100 ML IV SCH (06:51)
[2021-11-12] MEDS: LANTHANUM CARBONATE 500 MG CHEW TABLET PO SCH ×3 (08:00→18:32)
[2021-11-12 08:30] VITALS: BP 86/69
[2021-11-12 08:40] VITALS: BP_SYST 104; BP_SYST 132; BP_DIAS 62; BP_DIAS 68
[2021-11-12 08:56] LABS: ALBUMIN 1.8 GM/DL (3.2-5.2); BILIRUBIN,TOTAL 0.4 MG/DL (0.2-1.0); CALCIUM LEVEL 8.2 MG/DL (8.8-10.2); CREATININE FOR GFR 14.4 MG/DL (0.70-1.30); FREE T4 0.95 NG/DL (0.76-1.46); GLOMERULAR FILTRATION RATE 3.6 (>42); TOTAL PROTEIN 4.8 GM/DL (6.4-8.2); TOTAL T3 42.8 NG/DL (60.0-181.0)
[2021-11-12] MEDS ORDERED: ASPIRIN 81MG ENTERIC TABLET PO SCH (09:00)
[2021-11-12] MEDS ORDERED: ENOXAPARIN 40MG/0.4ML SYRINGE (J1650 PER 10MG) SC SCH (09:00)
[2021-11-12 09:05] LABS: PERITONEAL DIALYSATE FL COLOR COLORLESS (COLORLESS); SOURCE, BODY FLUID PERITONEAL DIALYSATE
[2021-11-12 09:06] LABS: APPEARANCE, BODY FLUID CLEAR (CLEAR)
[2021-11-12] MEDS ORDERED: HEPARIN SOD (PORCINE) 5000UNITS/ML 1ML VIAL/SYRINGE PD ONE (10:00)
[2021-11-12] MEDS: DIVALPROEX 500MG *ER* TAB PO SCH ×2 (10:33→21:38)
[2021-11-12] MEDS: CLOPIDOGREL 75 MG TAB PO SCH (10:33)
[2021-11-12] MEDS: VITAMIN D 1,000 INTERNATIONAL UNITS TABLET PO SCH (10:33)
[2021-11-12] MEDS: OCUVITE 1 TAB PO SCH ×2 (10:33→21:39)
[2021-11-12] MEDS: FERROUS GLUCONATE 324 MG TAB PO SCH ×2 (10:34→21:38)
[2021-11-12] MEDS ORDERED: GLUCOSE 4GM CHEW TABLET PO PRN (11:00)
[2021-11-12] MEDS ORDERED: GLUCAGON INJ 1MG VIAL SC PRN (11:00)
[2021-11-12] MEDS ORDERED: POTASSIUM CHLORIDE 10MEQ SR TABLET PO ONE (11:15)
[2021-11-12 14:00] VITALS: BP 107/66
[2021-11-12] MEDS: D5W/0.9% SODIUM CHLORIDE 1,000 ML IV SCH ×2 (14:57→23:44)
[2021-11-12 17:29] VITALS: BP 130/80
[2021-11-12 18:45] LABS: MAGNESIUM LEVEL 2.1 MG/DL (1.8-2.4); PHOSPHORUS LEVEL 6.6 MG/DL (2.5-4.9)
[2021-11-12 18:49] LABS: CK-MB VALUE MASS 8.8 NG/ML (<3.6); MB/CK RELATIVE INDEX 8.46 (< OR =4)
[2021-11-12] MEDS ORDERED: CIPROFLOXACIN 400 MG in IV 1 EA IV SCH (20:00)
[2021-11-12] MEDS ORDERED: HumaLOG INSULIN (NovoLOG) PER UNIT SC SCH (21:00)
[2021-11-12] MEDS: METOPROLOL SUCC *XL* 25MG TAB (TopROL *XL*) PO SCH (21:38)
[2021-11-12] MEDS: levETIRAcetam 250MG TABLET (KEPPRA) PO SCH (21:38)
[2021-11-12] MEDS: rOPINIRole 0.25 MG TAB(REQUIP) PO SCH (21:38)
[2021-11-12] MEDS: ROSUVASTATIN 10 MG TAB (CRESTOR) PO SCH (21:38)
[2021-11-12 21:52] LABS: CK-MB VALUE MASS 8.8 NG/ML (<3.6); MB/CK RELATIVE INDEX 6.72 (< OR =4)
[2021-11-12 22:00] VITALS: BP 164/88
[2021-11-12] MEDS: ACETAMINOPHEN TAB 650MG DOSE (2X325MG) PO PRN (23:44)
[2021-11-13 00:50] LABS: CK-MB VALUE MASS 8.5 NG/ML (<3.6); MB/CK RELATIVE INDEX 6.75 (< OR =4)
[2021-11-13] MEDS: metroNIDAZOLE 500 MG in IV 1 EA IV SCH ×2 (02:24→11:29)
[2021-11-13 06:00] VITALS: BP 159/83
[2021-11-13] MEDS: LEVOTHYROXINE 75MCG TABLET (0.075MG) PO SCH (06:01)
[2021-11-13] MEDS: ACETAMINOPHEN TAB 650MG DOSE (2X325MG) PO PRN ×2 (06:23→20:48)
[2021-11-13] MEDS: HumaLOG INSULIN (NovoLOG) PER UNIT SC SCH ×3 (07:30→17:30)
[2021-11-13 08:34] LABS: HEMATOCRIT 31.9 % (42.0-52.0); HEMOGLOBIN 10.5 g/dl (13.5-17.5); MEAN CORPUSCULAR HEMOGLOBIN 33.4 pg (27.0-33.0); MEAN CORPUSCULAR HGB CONC 32.9 g/dl (32.0-36.5); MEAN CORPUSCULAR VOLUME 101.6 fl (80.0-96.0); PLATELET COUNT, AUTOMATED 303 10^3/uL (150-450); RED BLOOD COUNT 3.14 10^6/uL (4.30-6.10); WHITE BLOOD COUNT 17.8 10^3/uL (4.0-10.0)
[2021-11-13] MEDS ORDERED: LACTOBACILLUS ACIDOPHILUS CAP (BACID) PO SCH (09:00)
[2021-11-13 09:01] LABS: BILIRUBIN,TOTAL 0.3 MG/DL (0.2-1.0); CALCIUM LEVEL 9.1 MG/DL (8.8-10.2); CREATININE FOR GFR 12.4 MG/DL (0.70-1.30); GLOMERULAR FILTRATION RATE 4.2 (>42); POTASSIUM SERUM 3.3 MEQ/L (3.5-5.1); TOTAL PROTEIN 5.5 GM/DL (6.4-8.2)
[2021-11-13] MEDS ORDERED: POTASSIUM CHLORIDE 10MEQ SR TABLET PO ONE (09:45)
[2021-11-13] MEDS: D5W/0.9% SODIUM CHLORIDE 1,000 ML IV SCH (09:46)
[2021-11-13] MEDS: LANTHANUM CARBONATE 500 MG CHEW TABLET PO SCH ×6 (11:26→19:30)
[2021-11-13] MEDS: CLOPIDOGREL 75 MG TAB PO SCH (11:27)
[2021-11-13] MEDS: levETIRAcetam 250MG TABLET (KEPPRA) PO SCH ×2 (11:27→20:45)
[2021-11-13] MEDS: VITAMIN D 1,000 INTERNATIONAL UNITS TABLET PO SCH (11:27)
[2021-11-13] MEDS: OCUVITE 1 TAB PO SCH ×2 (11:27→20:45)
[2021-11-13] MEDS: FERROUS GLUCONATE 324 MG TAB PO SCH ×2 (11:28→20:44)
[2021-11-13] MEDS: DIVALPROEX 500MG *ER* TAB PO SCH ×2 (11:28→20:44)
[2021-11-13] MEDS: HEPARIN SOD (PORCINE) 5000UNITS/ML 1ML VIAL/SYRINGE SQ SCH ×2 (12:23→21:09)
[2021-11-13] MEDS ORDERED: AMIODARONE HCL 150 MG in IV 1 EA IV STA (12:26)
[2021-11-13 14:00] VITALS: BP 130/55
[2021-11-13 14:56] LABS: PHOSPHORUS LEVEL 4.8 MG/DL (2.5-4.9)
[2021-11-13 16:00] VITALS: BP 150/71
[2021-11-13] MEDS: KCL 20MEQ IN 0.45NS 1000ML 1,000 ML IV SCH (16:12)
[2021-11-13] MEDS: LOPERAMIDE 2 MG CAPLET PO PRN (16:12)
[2021-11-13] MEDS: DEXTROSE 50% 50 ML SYRINGE IV PRN (18:12)
[2021-11-13] MEDS: LACTOBACILLUS ACIDOPHILUS CAP (BACID) PO SCH (18:41)
[2021-11-13 20:00] VITALS: BP 159/74
[2021-11-13] MEDS: ROSUVASTATIN 10 MG TAB (CRESTOR) PO SCH (20:43)
[2021-11-13] MEDS: rOPINIRole 0.25 MG TAB(REQUIP) PO SCH (20:45)
[2021-11-13] MEDS: traZODone 50 MG TAB PO PRN (20:47)
[2021-11-13] MEDS: METOPROLOL SUCC *XL* 25MG TAB (TopROL *XL*) PO SCH (20:49)
[2021-11-13 22:00] VITALS: BP 126/62
[2021-11-14] VITALS (12 sets, daily range): BP systolic 102–159; BP diastolic 49–75
[2021-11-14] MEDS: KCL 20MEQ IN 0.45NS 1000ML 1,000 ML IV SCH ×3 (01:02→21:00)
[2021-11-14 03:24] LABS: HEMATOCRIT 31.2 % (42.0-52.0); MEAN CORPUSCULAR HEMOGLOBIN 33.4 pg (27.0-33.0); MEAN CORPUSCULAR HGB CONC 32.1 g/dl (32.0-36.5); MEAN CORPUSCULAR VOLUME 104.3 fl (80.0-96.0); PLATELET COUNT, AUTOMATED 261 10^3/uL (150-450); RED BLOOD COUNT 2.99 10^6/uL (4.30-6.10); WHITE BLOOD COUNT 15.9 10^3/uL (4.0-10.0)
[2021-11-14 04:16] LABS: ALBUMIN 1.9 GM/DL (3.2-5.2); BILIRUBIN,TOTAL 0.3 MG/DL (0.2-1.0); CALCIUM LEVEL 8.4 MG/DL (8.8-10.2); CREATININE FOR GFR 11.4 MG/DL (0.70-1.30); GLOMERULAR FILTRATION RATE 4.7 (>42); MAGNESIUM LEVEL 1.7 MG/DL (1.8-2.4); POTASSIUM SERUM 3.1 MEQ/L (3.5-5.1)
[2021-11-14] MEDS ORDERED: NS 250 ML IV ONE (04:25)
[2021-11-14] MEDS ORDERED: POTASSIUM CHLORIDE 10MEQ SR TABLET PO ONE (05:00)
[2021-11-14] MEDS: MAG SULF 1GM/100ML (MAG RUN) 1 GM in IV 1 EA IV SCH ×2 (05:29→06:42)
[2021-11-14] MEDS: LEVOTHYROXINE 75MCG TABLET (0.075MG) PO SCH (06:12)
[2021-11-14 06:16] LABS: HEMATOCRIT 27.8 % (42.0-52.0); HEMOGLOBIN 9.1 g/dl (13.5-17.5); MEAN CORPUSCULAR HEMOGLOBIN 33.6 pg (27.0-33.0); MEAN CORPUSCULAR HGB CONC 32.7 g/dl (32.0-36.5); MEAN CORPUSCULAR VOLUME 102.6 fl (80.0-96.0); PLATELET COUNT, AUTOMATED 229 10^3/uL (150-450); RED BLOOD COUNT 2.71 10^6/uL (4.30-6.10); WHITE BLOOD COUNT 14.7 10^3/uL (4.0-10.0)
[2021-11-14 06:52] LABS: ALBUMIN 1.7 GM/DL (3.2-5.2); BILIRUBIN,TOTAL 0.2 MG/DL (0.2-1.0); CALCIUM LEVEL 8.3 MG/DL (8.8-10.2); CREATININE FOR GFR 11.2 MG/DL (0.70-1.30); GLOMERULAR FILTRATION RATE 4.8 (>42); POTASSIUM SERUM 3.5 MEQ/L (3.5-5.1); TOTAL PROTEIN 4.8 GM/DL (6.4-8.2)
[2021-11-14] MEDS ORDERED: AMIODARONE HCL 150 MG in IV 1 EA IV STA (08:08)
[2021-11-14] MEDS: DIVALPROEX 500MG *ER* TAB PO SCH ×2 (08:22→21:00)
[2021-11-14] MEDS: LOPERAMIDE 2 MG CAPLET PO PRN (08:22)
[2021-11-14] MEDS: OCUVITE 1 TAB PO SCH ×2 (08:22→21:00)
[2021-11-14] MEDS: levETIRAcetam 250MG TABLET (KEPPRA) PO SCH ×2 (08:23→21:00)
[2021-11-14] MEDS: CLOPIDOGREL 75 MG TAB PO SCH (08:23)
[2021-11-14] MEDS: FERROUS GLUCONATE 324 MG TAB PO SCH ×2 (08:23→21:00)
[2021-11-14] MEDS: VITAMIN D 1,000 INTERNATIONAL UNITS TABLET PO SCH (08:23)
[2021-11-14] MEDS: HEPARIN SOD (PORCINE) 5000UNITS/ML 1ML VIAL/SYRINGE SQ SCH ×2 (08:23→21:00)
[2021-11-14] MEDS: LACTOBACILLUS ACIDOPHILUS CAP (BACID) PO SCH ×2 (08:23→18:24)
[2021-11-14] MEDS ORDERED: AMIODARONE HCL 360 MG in IV 1 EA IV SCH (09:10)
[2021-11-14] MEDS: METOPROLOL TART 25 MG TABLET PO SCH ×2 (10:27→21:00)
[2021-11-14] MEDS: LANTHANUM CARBONATE 500 MG CHEW TABLET PO SCH ×2 (12:44→18:24)
[2021-11-14] MEDS: DEXTROSE 50% 50 ML SYRINGE IV PRN ×2 (12:44→17:09)
[2021-11-14] MEDS ORDERED: NITROGLYCERIN 0.4 MG SUBL TABLET SL PRN (13:35)
[2021-11-14] MEDS: AMIODARONE HCL 360 MG in IV 1 EA IV SCH (16:40)
[2021-11-14] MEDS: rOPINIRole 0.25 MG TAB(REQUIP) PO SCH (21:00)
[2021-11-14] MEDS: ROSUVASTATIN 10 MG TAB (CRESTOR) PO SCH (21:00)
[2021-11-14] MEDS: traZODone 50 MG TAB PO PRN (21:17)
[2021-11-14] MEDS: ACETAMINOPHEN TAB 650MG DOSE (2X325MG) PO PRN (21:17)
[2021-11-15] VITALS (10 sets, daily range): BP systolic 93–140; BP diastolic 52–76
[2021-11-15] MEDS: LOPERAMIDE 2 MG CAPLET PO PRN (02:27)
[2021-11-15] MEDS: AMIODARONE HCL 360 MG in IV 1 EA IV SCH (04:12)
[2021-11-15] MEDS: LEVOTHYROXINE 75MCG TABLET (0.075MG) PO SCH (06:06)
[2021-11-15 06:19] LABS: HEMATOCRIT 25.8 % (42.0-52.0); HEMOGLOBIN 8.4 g/dl (13.5-17.5); MEAN CORPUSCULAR HGB CONC 32.6 g/dl (32.0-36.5); MEAN CORPUSCULAR VOLUME 104.5 fl (80.0-96.0); PLATELET COUNT, AUTOMATED 242 10^3/uL (150-450); RED BLOOD COUNT 2.47 10^6/uL (4.30-6.10); WHITE BLOOD COUNT 12.9 10^3/uL (4.0-10.0)
[2021-11-15 06:50] LABS: ALBUMIN 1.5 GM/DL (3.2-5.2); ALT/SGPT 22 U/L (12-78); BILIRUBIN,TOTAL < 0.1 MG/DL (0.2-1.0); BLOOD UREA NITROGEN 37 MG/DL (7-18); CALCIUM LEVEL 7.9 MG/DL (8.8-10.2); CARBON DIOXIDE LEVEL 19 MEQ/L (21-32); CHLORIDE LEVEL 107 MEQ/L (98-107); CREATININE FOR GFR 9.49 MG/DL (0.70-1.30); GLOMERULAR FILTRATION RATE 5.8 (>42); GLUCOSE, FASTING 86 MG/DL (70-100); SODIUM LEVEL 138 MEQ/L (136-145); TOTAL PROTEIN 3.9 GM/DL (6.4-8.2)
[2021-11-15] MEDS: KCL 20MEQ IN 0.45NS 1000ML 1,000 ML IV SCH (07:18)
[2021-11-15] MEDS: DEXTROSE 50% 50 ML SYRINGE IV PRN ×3 (07:47→17:46)
[2021-11-15] MEDS ORDERED: D5W/0.45% SODIUM CHLORIDE 1,000 ML IV SCH (07:55)
[2021-11-15] MEDS: HEPARIN SOD (PORCINE) 5000UNITS/ML 1ML VIAL/SYRINGE SQ SCH (08:10)
[2021-11-15] MEDS: OCUVITE 1 TAB PO SCH (08:10)
[2021-11-15] MEDS: LANTHANUM CARBONATE 500 MG CHEW TABLET PO SCH ×3 (08:10→17:51)
[2021-11-15] MEDS: CLOPIDOGREL 75 MG TAB PO SCH (08:12)
[2021-11-15] MEDS: DIVALPROEX 500MG *ER* TAB PO SCH (08:12)
[2021-11-15] MEDS: levETIRAcetam 250MG TABLET (KEPPRA) PO SCH (08:12)
[2021-11-15] MEDS: LACTOBACILLUS ACIDOPHILUS CAP (BACID) PO SCH ×2 (08:12→17:51)
[2021-11-15] MEDS: VITAMIN D 1,000 INTERNATIONAL UNITS TABLET PO SCH (08:13)
[2021-11-15] MEDS: METOPROLOL TART 25 MG TABLET PO SCH (08:13)
[2021-11-15] MEDS: FERROUS GLUCONATE 324 MG TAB PO SCH (08:13)
[2021-11-15] MEDS ORDERED: AMIODARONE 200 MG TAB (PACERONE) PO SCH (09:00)
[2021-11-15] MEDS ORDERED: DARB10SYRN SC (16:32)
[2021-11-15] MEDS ORDERED: METO1TAB87 PO (16:32)
[2021-11-15] MEDS ORDERED: AMIO200T49 PO (16:32)
[2021-11-15] MEDS ORDERED: HEPA500023 SQ (16:32)
[2021-11-15] MEDS ORDERED: LOPE2CA PO (16:32)
[2021-11-15] MEDS ORDERED: RISATAB3 PO (16:32)
[2021-11-16] MEDS ORDERED: DARBEPOETIN 100 MCG/0.5 ML *NON-DIALYSIS* SYRINGE (J0881) SC SCH (09:00)
== END 2021-11-15 19:26 | disposition short-term general hospital (02) | DRG 70 ==
LOC: EDBD 14:41 → M ED 14:41 → M ED INP 17:24 → M MSPAV 22:58 → M PCU 11-13 13:22
PROVIDERS: ADMIT Internal Medicine; ATTEND Internal Medicine
PROC: 3E1M39Z Irrigation of Peritoneal Cavity using Dialysate, Percutaneous Approach (ICD-10-PCS; principal; 2021-11-11)
DX: G93.41 Metabolic encephalopathy (principal); N18.6 End stage renal disease; K57.32 Diverticulitis of large intestine without perforation or abscess without bleeding; I12.0 Hypertensive chronic kidney disease with stage 5 chronic kidney disease or end stage renal disease; I47.2 Ventricular tachycardia; K52.1 Toxic gastroenteritis and colitis; I25.10 Atherosclerotic heart disease of native coronary artery without angina pectoris; E78.5 Hyperlipidemia, unspecified; N40.0 Benign prostatic hyperplasia without lower urinary tract symptoms; E11.22 Type 2 diabetes mellitus with diabetic chronic kidney disease; E03.9 Hypothyroidism, unspecified; E83.39 Other disorders of phosphorus metabolism; M21.372 Foot drop, left foot; R07.89 Other chest pain; D64.9 Anemia, unspecified; R26.81 Unsteadiness on feet; I95.9 Hypotension, unspecified; E87.6 Hypokalemia; E11.51 Type 2 diabetes mellitus with diabetic peripheral angiopathy without gangrene; I25.2 Old myocardial infarction; T36.8X5A Adverse effect of other systemic antibiotics, initial encounter; Z95.5 Presence of coronary angioplasty implant and graft; Z90.49 Acquired absence of other specified parts of digestive tract; Z99.2 Dependence on renal dialysis; E86.0 Dehydration; Z20.822 Contact with and (suspected) exposure to COVID-19; Z79.82 Long term (current) use of aspirin; Z79.02 Long term (current) use of antithrombotics/antiplatelets; Z79.899 Other long term (current) drug therapy; Z88.5 Allergy status to narcotic agent; Z87.891 Personal history of nicotine dependence